=== PATIENT | male | born 1950 | race Hispanic/Latino ===

== ENCOUNTER 2021-01-12 13:04 | Emergency (ER) | payer OTHER ==
[2021-01-12 13:52] LABS: Urine Blood Trace-lysed (Negative); Urine Glucose Trace (Negative); Urine Protein Negative (Negative); Urine Specific Gravity 1.015 (1.005-1.030); Urine pH 5.5 (5.0-7.0)
--- NOTE | 2021-01-12 15:10 | RAD REPORT ---
EXAM DESCRIPTION: US - Scrotum Testicles - 01/12/2021 2:40 pm CLINICAL HISTORY: left testicle pain/swelling COMPARISON: Abdomen Exam Complete dated 10/01/2020; Abdomen W/Wo Contrast dated 01/24/2019 FINDINGS: The right testicle measures 4.3 x 2.1 x 2.6 cm with volume of 11.9 cc. The left testicle m easures 3.9 x 1.8 x 3 cm with volume of 10.8 cc. No masses are identified. The echotexture is normal. Right groin fluid collection demonstrating bulging bowel with Valsalva consistent with an inguinal h ernia. The left epididymis demonstrates increased vascular flow. The right epididymis is unremarkable . IMPRESSION: 1. Increased epididymal blood flow on the left may represent epididymitis. No fluid nga ections are identified. 2. Fluid in the right inguinal canal most likely secondary to an inguinal hernia. 3. Bilateral testicular blood flow is present.
--- NOTE | 2021-01-12 15:14 | EDPHYS ---
Physician Documentation [facility] Name: Kole Casas Jr Age: 70 yrs Sex: Male : 1950 Arrival Date: 01/12/2021 Time: 13:08 Bed 10 Private MD: ED Physician Raffy Good HPI: 01/12 14:14 This 70 yrs old Male presents to ER via Ambulatory with complaints of jr8 Testicular Swelling. 14:14 The patient presents with scrotal pain, of the left side, with swelling, with erythema, jr8 swelling, tenderness. Onset: The symptoms/episode began/occurred gradually. Modifying factors: The symptoms are alleviated by nothing, the symptoms are aggravated by movement, urinating. Associated signs and symptoms: Pertinent positives: dysuria. Severity of symptoms: At their worst the symptoms were moderate, in the emergency department the symptoms are unchanged. The patient has not experienced similar symptoms in the past. The patient has been recently seen by a physician:. Patient recently seen for same problem and had CT scan completed and was put on cipro. Did not have US completed at that time. Patient stated that he feels that something is just not right and wants reevaluation . Historical: - Allergies: 13:43 No Known Drug Allergies; tw2 13:43 No Known Allergies; tc5 - PMHx: 13:43 Cirrhosis of liver; tw2 - Immunization history:: Adult Immunizations Client reports receiving the 2nd dose of the Covid vaccine, Adult Immunizations up to date, x3. - Social history:: Smoking status: Smoking status: unknown Patient/guardian denies using. ROS: 14:14 Eyes: Negative for injury, pain, redness, and discharge, ENT: Negative for injury, jr8 pain, and discharge, Neck: Negative for injury, pain, and swelling, Cardiovascular: Negative for chest pain, palpitations, and edema, Respiratory: Negative for shortness of breath, cough, wheezing, and pleuritic chest pain, Abdomen/GI: Negative for abdominal pain, nausea, vomiting, diarrhea, and constipation, Back: Negative for injury and pain, MS/Extremity: Negative for injury and deformity, Skin: Negative for injury, rash, and discoloration, Neuro: Negative for headache, weakness, numbness, tingling, and seizure. 14:14 : Positive for urinary symptoms, testicular pain Exam: 14:14 Constitutional: This is a well developed, well nourished patient who is awake, alert, jr8 and in no acute distress. Cardiovascular: Regular rate and rhythm with a normal S1 and S2. No gallops, murmurs, or rubs. Normal PMI, no JVD. No pulse deficits. Respiratory: Lungs have equal breath sounds bilaterally, clear to auscultation and percussion. No rales, rhonchi or wheezes noted. No increased work of breathing, no retractions or nasal flaring. Abdomen/GI: Soft, non-tender, with normal bowel sounds. No distension or tympany. No guarding or rebound. No evidence of tenderness throughout. Back: No spinal tenderness. No costovertebral tenderness. Full range of motion. Skin: Warm, dry with normal turgor. Normal color with no rashes, no lesions, and no evidence of cellulitis. MS/ Extremity: Pulses equal, no cyanosis. Neurovascular intact. Full, normal range of motion. Neuro: Awake and alert, GCS 15, oriented to person, place, time, and situation. Motor strength 5/5 in all extremities. Sensory grossly intact. 14:14 : Male external genitalia: swelling, of the left testicle is noted, testicle, of the epididymis area, that is mild, tenderness, of the left testicle is noted, that is moderate. Vital Signs: 13:11 BP 167 / 94; Pulse 83; Resp 16; Temp 98.1; Pulse Ox 100% ; Weight 77.11 kg; Height 5 tc5 ft. 9 in. (175.26 cm); Pain 6/10; 15:26 BP 154 / 96; Pulse 75; Resp 16; Pulse Ox 100% ; tc5 13:11 Body Mass Index 25.10 (77.11 kg, 175.26 cm) tc5 MDM: 13:38 Patient medically screened. jr8 15:12 Data reviewed: vital signs, nurses notes, lab test result(s), radiologic studies, jr8 ultrasound. Data interpreted: Pulse oximetry: on room air is 100 %. Interpretation: normal. Counseling: I had a detailed discussion with the patient and/or guardian regarding: the historical points, exam findings, and any diagnostic results supporting the discharge/admit diagnosis, lab results, radiology results, the need for outpatient follow up, a urologist, to return to the emergency department if symptoms worsen or persist or if there are any questions or concerns that arise at home. 01/12 13:46 Order name: Urine Culture jr8 01/12 13:52 Order name: Urine Dipstick-Ancillary; Complete Time: 13:54 EDNY 01/12 13:46 Order name: US Scrotum Testicles; Complete Time: 15:12 jr8 01/12 13:46 Order name: Urine Dipstick-Ancillary (obtain specimen); Complete Time: 13:59 jr8 Administered Medications: No medications were administered Disposition Summary: 01/12/21 15:13 Discharge Ordered Location: Home jr8 Problem: new jr8 Symptoms: have improved jr8 Condition: Stable jr8 Diagnosis - Epididymitis jr8 Followup: jr8 - With: Chalino Warren MD - When: 2 - 3 days - Reason: Recheck today's complaints, Continuance of care, Re-evaluation by your physician Discharge Instructions: - Discharge Summary Sheet jr8 - Epididymitis jr8 Forms: - Medication Reconciliation Form jr8 - Thank You Letter jr8 - Antibiotic Education jr8 - Prescription Opioid Use jr8 Addendum: 01/15/2021 17:40 Co-signature as Attending Physician, Raffy Good MD. m a2 Signatures: Dispatcher [employer] [facility] Harish Sanders PA PA jr8 Coco Olson RN RN tw2 Raffy Good MD MD ma2 Teena Johnson RN RN tc5
--- NOTE | 2021-01-12 15:14 | ER ---
Nurse's Notes [facility] Name: Kole Casas Jr Age: 70 yrs Sex: Male : 1950 Arrival Date: 01/12/2021 Time: 13:08 Bed 10 Private MD: Diagnosis: Epididymitis Presentation: 01/12 13:11 Chief complaint: Patient states: pt reports left testicular pain x 4 days, seen at [facility] Sunday was given antibiotics, went to PCP yesterday and was told to cont abx, pt states he wants to go to a specialist, states he knows something is not right. Coronavirus screen: Vaccine status: Patient reports receiving the 2nd dose of the covid vaccine. pt has had 3 dose of vaccine. Ebola Screen: Patient negative for fever greater than or equal to 101.5 degrees Fahrenheit, and additional compatible Ebola Virus Disease symptoms Patient denies exposure to infectious person. Patient denies travel to an Ebola-affected area in the 21 days before illness onset. No symptoms or risks identified at this time. Risk Assessment: Do you want to hurt yourself or someone else? Patient reports no desire to harm self or others. Onset of symptoms was January 08, 2021 at 07:00. 13:11 Method Of Arrival: Ambulatory [facility] 13:11 Acuity: MINNIE 3 tc5 13:44 Initial Sepsis Screen: Does the patient meet any 2 criteria? No. Patient's initial tw2 sepsis screen is negative. Does the patient have a suspected source of infection? No. Patient's initial sepsis screen is negative. Triage Assessment: 13:34 General: Appears in no apparent distress. Behavior is calm, cooperative, appropriate tw2 for age. Pain: Complains of pain in testicles. 13:44 General: Appears uncomfortable. tc5 Historical: - Allergies: 13:43 No Known Drug Allergies; tw2 13:43 No Known Allergies; tc5 - PMHx: 13:43 Cirrhosis of liver; tw2 - Immunization history:: Adult Immunizations Client reports receiving the 2nd dose of the Covid vaccine, Adult Immunizations up to date, x3. - Social history:: Smoking status: Smoking status: unknown Patient/guardian denies using. Screenin:38 Abuse screen: Denies threats or abuse. Nutritional screening: No deficits noted. tw2 Tuberculosis screening: No symptoms or risk factors identified. Fall Risk None identified. Assessment: 13:45 General: Appears uncomfortable. Pain:. Neuro: No deficits noted. Cardiovascular: No tc5 deficits noted. Respiratory: No deficits noted. : Reports left teste pain and swelling x 4 days. Vital Signs: 13:11 BP 167 / 94; Pulse 83; Resp 16; Temp 98.1; Pulse Ox 100% ; Weight 77.11 kg; Height 5 tc5 ft. 9 in. (175.26 cm); Pain 6/10; 15:26 BP 154 / 96; Pulse 75; Resp 16; Pulse Ox 100% ; tc5 13:11 Body Mass Index 25.10 (77.11 kg, 175.26 cm) tc5 ED Course: 13:08 Patient arrived in ED. as 13:23 Triage completed. tc5 13:38 Harish Sanders PA is PHCP. jr8 13:38 Raffy Good MD is Attending Physician. jr8 13:38 Arm band placed on. tw2 13:43 Teena Johnson, RN is Primary Nurse. tc5 13:44 Placed in gown. Bed in low position. Call light in reach. Adult w/ patient. tw2 13:58 No provider procedures requiring assistance completed. pt to US via W/C. tc5 13:59 Urine Culture Sent. tc5 14:24 US Scrotum Testicles In Process Unspecified. EDMS 15:13 Chalino Warren MD is Referral Physician. jr8 15:26 Awaiting: US results, pt remains at bedside, no needs expressed at this time. tc5 Administered Medications: No medications were administered Outcome: 15:13 Discharge ordered by . jr8 16:04 Patient left the ED. tc5 Signatures: Dispatcher [employer] EDMS Tigist Marks Josh, PA PA jr8 Coco Olson, RN RN tw2 Teena Johnson, AIDA RN tc5
[2021-01-12 17:05] VITALS: TEMP 98.1; O2SAT 100
[2021-01-12 17:06] VITALS: BP 154/96
== END 2021-01-12 16:04 | disposition home or self-care (01) ==
LOC: ER 13:04
DX: N45.1 Epididymitis (principal)
CPT/HCPCS: 76870; 81003; 87086; 87088; 99283

== ENCOUNTER 2022-05-08 10:14 | Emergency (ER) | payer OTHER ==
--- OUTSIDE RECORDS SUMMARY | 2022-05-08 10:17 | XMS REPORT | Continuity of Care Document ---
:1950 Author Organization [facility] t Address [address] [place] [address] [address] [place] [address] Care Team Providers Name Role Phone ROSAURA GARCIA Attending Clinician Unavailable NBA HAGAN Attending Clinician Unavailable Nathan-Silviao_A_AH Attending Clinician Unavailable Katty Ortega MD Attending Clinician Nathan-Matteoayo_A_AH Admitting Clinician Unavailable Payers Payer Name Policy Type Policy Number Effective Date Expiration Date S ource [employer] MEDICARE [id number] 2020 00:00:00 [facility] [id number] 2018 PLUS CHOICE 00:00:00 [facility] [id number] 2019 [facility] 00:00:00 (MEDICARE REPLACEMENT/ADVANT AGE - HMO) Problems This patient has no known problems. Allergies, Adverse Reactions, Alerts Allergy Allergy Status Severity Reaction(s) Onset Inactive Treating Comm ents Source Name Type Date Date Clinician NO KNOWN Drug Active Univers ALLERGIE Class ity of S [facility] Social History Social Habit Start Date Stop Date Quantity Comments Source Sex Assigned At Uni versity [facility] Smoking Status Start Date Stop Date Source Unknown if ever smoked [facility] Medications Ordered Filled Start Stop Current Ordering Indication Dosage Frequency Signature Comments Components Source Medication Medication Date Date Medication? Clinician (SIG) Name Name iohexol 2019- No 120mL 120 mL, Unive rs (OMNIPAQUE 12-2605 Intravenou it y of 350 19:00: 18:40 s, ONCE, 1 [place] BULK-150 00 :00 dose, Trisha Medica l mL) 12/26/18 at Branch injection 1400, 120 mL Routine Procedures Procedure Date / Time Performing Clinician Source Performed CT ABDOMEN PELVIS W 2018-12-26 18:50:33 Katty Ortega [facility] CONTRAST Medical Branch NOTICE OF BILLING 2018-12-26 17:45:17 Doctor Unassopal, [facility] PRACTICES FOR MEDICARE [facility] PATIENTS [facility] PATIENT FINANCIAL 2018-12-26 17:44:38 Doctor Unassigned, [facility] POLICY [facility] NO SHOW OR MISSED 2018-12-26 17:44:19 Doctor Unassopal, [facility] APPOINTMENT POLICY [facility] ACKNOWLEDGEMENT NOTICE OF PRIVACY 2018-12-26 17:43:44 Doctor Unaguerda, [facility] PRACTICES [facility] CONSENT/REFUSAL FOR 2018-12-26 17:43:26 Doctor Patience, [facility] DIAGNOSIS AND TREATMENT [facility] ASSIGNMENT OF BENEFITS 2018-12-26 17:43:07 Doctor Unassigned, [facility] Encounters Start End Encounter Admission Attending Care Care Encounter Source Date/Time Date/Time Type Type Clinicians Facility Department ID 2020-12-13 2020-12-13 Outpatient Owen GARCIA [facility] [id number] Univers 12:40:00 12:40:00 ROSAURA [facility] 2020-07-18 2020-07-18 Outpatient Owen HAGAN [facility] [id number] Univers 12:40:00 12:40:00 NBA [facility] 2020-06-27 2020-06-27 Outpatient [facility] [id number] Univers 13:30:00 13:30:00 [facility] 2019-07-03 2019-07-03 Outpatient Nathan-Mbayo [facility] [id number] Village 06:16:00 06:16:00 _A_AH [id number] Family Practic e 2019-07-03 2019-07-03 Outpatient Nathan-Mbayo VFP VFP [phone] Village 06:16:00 06:16:00 _A_AH [id number] Family Practic e 2018-12-26 2018-12-26 [facility] Katty Ortega [facility] [id number] [facility] 12:56:21 23:59:00 Encounter M Pamela [id number] ity of [place] [id number] [facility] [id number] [facility] 801 Branch 2018-12-26 2018-12-26 [facility] Katty Ortega [facility] [id number] 12:56:21 23:59:00 Encounter M Pamela [id number] [place] [id number] [place] [id number] Results Test Test Test Results Result Source Description Time Comments Comments CT ABDOMEN 2018-12 CT Abdomen and Pelvis with [facility] PELVIS W -05 intravenous contrast. CLINICAL of [place] CONTRAST 19:05:0 HISTORY: History of portal Medical 8 vein thrombosis. DOSE: Br anch Up-to-date CT equipment and radiation dose reduction techniques wereemployed. CTDIvol: 6.69+6.69 mGy. DLP: 338+338 mGy-cm. TECHNIQUE : Contiguous axial imaging from the level of the lung basesthrough the pubic symphysis were performed after the uncomplicatedadministration of Omnipaque contrast material. Oral contrast was alsoadministered. Coronal and sagittal reconstructions were obtained. Auto mAand/or iterative reconstruction were used to reduce radiation dose. FINDINGS:? Lower lungs: Clear. No pleural effusion or pericardial effusion. Shortsliding hiatal hernia noted surrounded by esophageal varices. Gallstones are seen with fluid noted in the pericholecystic space, likelysecondary to liver disease. Liver, Gallbladder and Spleen: Liver is 12.4 cm and spleen is enlarged,measuring 14.7 x 6.4 cm. Liver showed nodular undulating serosal surface,consistent with chronic primary liver disease, possibly cirrhosis withportal hypertension. Peritoneum:?No free air or free fluid. No lymphadenopathy. Pancreas and Adrenals:?Unremarkable pancreas and adrenal glands. Kidneys and Ureters: Punctate 2 mm stone suspected in the middle calyx ofthe left kidney. No hydroureter or hydronephrosis. Vessels: Partially occluding thrombus is visualized in the superiormesenteric vein at the junction with the splenic vein and portal vein,occupying approximately 50-60% of the lumen of the vessel. The blood clotis approximately 2.2 x 1.4 cm in size. There is still the portal venouscirculation is patent. Dilated portal collaterals are seen surroundingstomach and lower esophagus.Atherosclerosis of the aorta and iliac arteries noted without an aorticaneurysm. Retroperitoneum: No abnormal fluid or lymphadenopathy. Bowel: Diverticulosis of the sigmoid colon noted with additionaldiverticula in the rest of large bowel without any signs of acutediverticulitis. Small bowel gas pattern is unremarkable. Appendix is smallin size with no signs of acute appendicitis. Bladder and Reproductive Organs: Urinary bladder is poorly distended andnot opacified by the intravenous contrast material. Mild enlargement of theprostate gland noted. Bones: No aggressive bone lesions. Moderate degenerative disc disease atL4-L5, L5-S1. Older trauma with prominent Schmorl's nodes in the upperplate of L2, L3, L4, lower plate of L1, L4 and lower thoracic vertebralbodies. Soft tissues: Small right inguinal hernia noted with small amount of fluidin the testicular cord. CONCLUSION:1. Partially occluding 2.2 x 1.4 cm size thrombus noted in superiormesenteric vein close to the confluence with splenic vein and portal vein.2. Liver morphology consistent with chronic liver disease such as cirrhosiswith portal hypertension causing splenomegaly and esophageal varices. Nofree fluid in the abdomen or in the pelvis.3. Gallstone and one small stone in the left kidney. Mimb, Radiant Results Inft User - 12/26/2018 2:05 PM CDTCT Abdomen and Pelvis with intravenous contrast.CLINICAL HISTORY: History of portal vein thrombosis.DOSE: Up-to-date CT equipment and radiation dose reduction techniques wereemployed. CTDIvol: 6.69+6.69 mGy. DLP: 338+338 mGy-cm.TECHNIQUE : Contiguous axial imaging from the level of the lung basesthrough the pubic symphysis were performed after the uncomplicatedadministration of Omnipaque contrast material. Oral contrast was alsoadministered. Coronal and sagittal reconstructions were obtained. Auto mAand/or iterative reconstruction were used to reduce radiation dose.FINDINGS: Lower lungs: Clear. No pleural effusion or pericardial effusion. Shortsliding hiatal hernia noted surrounded by esophageal varices.Gallstones are seen with fluid noted in the pericholecystic space, likelysecondary to liver disease.Liver, Gallbladder and Spleen: Liver is 12.4 cm and spleen is enlarged,measuring 14.7 x 6.4 cm. Liver showed nodular undulating serosal surface,consistent with chronic primary liver disease, possibly cirrhosis withportal hypertension.Peritoneum: No free air or free fluid. No lymphadenopathy.Pancreas and Adrenals: Unremarkable pancreas and adrenal glands.Kidneys and Ureters: Punctate 2 mm stone suspected in the middle calyx ofthe left kidney. No hydroureter or hydronephrosis. Vessels: Partially occluding thrombus is visualized in the superiormesenteric vein at the junction with the splenic vein and portal vein,occupying approximately 50-60% of the lumen of the vessel. The blood clotis approximately 2.2 x 1.4 cm in size. There is still the portal venouscirculation is patent. Dilated portal collaterals are seen surroundingstomach and lower esophagus.Atherosclerosis of the aorta and iliac arteries noted without an aorticaneurysm.Retroperitoneum : No abnormal fluid or lymphadenopathy.Bowel: Diverticulosis of the sigmoid colon noted with additionaldiverticula in the rest of large bowel without any signs of acutediverticulitis. Small bowel gas pattern is unremarkable. Appendix is smallin size with no signs of acute appendicitis.Bladder and Reproductive Organs: Urinary bladder is poorly distended andnot opacified by the intravenous contrast material. Mild enlargement of theprostate gland noted.Bones: No aggressive bone lesions. Moderate degenerative disc disease atL4-L5, L5-S1. Older trauma with prominent Schmorl's nodes in the upperplate of L2, L3, L4, lower plate of L1, L4 and lower thoracic vertebralbodies.Soft tissues: Small right inguinal hernia noted with small amount of fluidin the testicular cord.CONCLUSION:1. Partially occluding 2.2 x 1.4 cm size thrombus noted in superiormesenteric vein close to the confluence with splenic vein and portal vein.2. Liver morphology consistent with chronic liver disease such as cirrhosiswith portal hypertension causing splenomegaly and esophageal varices. Nofree fluid in the abdomen or in the pelvis.3. Gallstone and one small stone in the left kidney.
[2022-05-08 11:04] LABS: Absolute Lymphocytes (CBC) 1.1 K/uL (0.7-4.9); Lymphocytes % 21.1 % (15.3-44.8); MCV 89.3 fL (80-100); MPV 8.8 fL (7.6-11.3); RBC Red Blood Cell Count 4.59 M/uL (4.33-5.43)
[2022-05-08 11:20] LABS: Albumin 3.8 g/dL (3.4-5.0); Bilirubin Total 1.2 mg/dL (0.2-1.0); Potassium 4.5 mmol/L (3.5-5.1)
--- NOTE | 2022-05-08 11:34 | RAD REPORT ---
EXAM DESCRIPTION: US - Abdomen Exam Limited - 05/08/2022 11:15 am CLINICAL HISTORY: RUQ pain COMPARISON: Abdomen Exam Complete dated 09/16/2021 FINDINGS: The gallbladder demonstrates shadowing mobile gallstones. No pericholecystic fluid or gall bladder wall thickening. The common bile duct is normal measuring 5 mm. Positive sonographic Pandya's sign reported. The liver demonstrates no findings of intrahepatic biliary dilatation. Coarsened echotexture of the l iver likely reflecting cirrhosis. IMPRESSION: Cholelithiasis. A positive sonographic Pandya's sign was reported. While sensitive, this is not specific. Correlate with LFTs. No ancillary findings are present to suggest acute cholecystit is, however.
--- NOTE | 2022-05-08 12:17 | RAD REPORT ---
EXAM DESCRIPTION: RAD - Shoulder Right 2 View - 05/08/2022 12:09 pm CLINICAL HISTORY: PAIN COMPARISON: No comparisons FINDINGS/IMPRESSION: No acute fracture. No malalignment. Moderate glenohumeral joint degenerative ch anges
--- NOTE | 2022-05-08 12:19 | RAD REPORT ---
EXAM DESCRIPTION: RAD - Knee Left 3 View - 05/08/2022 12:09 pm CLINICAL HISTORY: PAIN COMPARISON: No comparisons FINDINGS/IMPRESSION: No acute fracture. No malalignment. No significant focal degenerative changes.
--- NOTE | 2022-05-08 12:41 | ER ---
Nurse's Notes [facility] Name: Kole Casas Jr Age: 71 yrs Sex: Male : 1950 Arrival Date: 05/08/2022 Time: 10:18 Bed 8 Private MD: Rosalia Pierre Diagnosis: Other cholelithiasis without obstruction;Pain in right shoulder;Pain in left knee Presentation: 05/08 10:38 Chief complaint: Patient states: I have pain in my right shoulder, neck and left leg kr3 that has been there for 1 week. Coronavirus screen: Vaccine status: Patient reports receiving the 2nd dose of the covid vaccine. Ebola Screen: Patient denies travel to an Ebola-affected area in the 21 days before illness onset. Initial Sepsis Screen: Does the patient meet any 2 criteria? No. Patient's initial sepsis screen is negative. Does the patient have a suspected source of infection? No. Patient's initial sepsis screen is negative. Risk Assessment: Do you want to hurt yourself or someone else? Patient reports no desire to harm self or others. Onset of symptoms was May 01, 2022. 10:38 Method Of Arrival: Ambulatory kr3 10:38 Acuity: MINNIE 3 kr3 Triage Assessment: 10:41 General: Appears in no apparent distress. uncomfortable, Behavior is calm, cooperative, kr3 appropriate for age. Pain: Complains of pain in right neck and shoulder, left leg. Historical: - Allergies: 12:53 Ibuprofen; vg1 - PMHx: 10:40 cirrhosis of liver; kr3 - Immunization history:: Adult Immunizations not up to date. - Social history:: Smoking status: Patient denies any tobacco usage or history of. - Family history:: not pertinent. Screenin:50 [facility] ED Fall Risk Assessment (Adult) History of falling in the last 3 months, ld1 including since admission No falls in past 3 months (0 pts). Abuse screen: Denies threats or abuse. Denies injuries from another. Nutritional screening: No deficits noted. Tuberculosis screening: No symptoms or risk factors identified. Assessment: 10:50 General: Appears in no apparent distress. comfortable, Behavior is calm, cooperative, ld1 appropriate for age. Pain: Complains of pain in anterior aspect of right shoulder Pain does not radiate. Pain currently is 3 out of 10 on a pain scale. at worst was 10 out of 10 on a pain scale. Quality of pain is described as sharp, shooting, throbbing. Neuro: Level of Consciousness is awake, alert, obeys commands, Oriented to person, place, time, situation, Appropriate for age. Cardiovascular: Capillary refill < 3 seconds Patient's skin is warm and dry. Respiratory: Airway is patent Respiratory effort is even, unlabored. GI: Abdomen is round non-distended, Bowel sounds present X 4 quads. Abd is soft Abd is non tender. : No signs and/or symptoms were reported regarding the genitourinary system. EENT: No signs and/or symptoms were reported regarding the EENT system. Derm: No signs and/or symptoms reported regarding the dermatologic system. Musculoskeletal: No signs and/or symptoms reported regarding the musculoskeletal system. 13:06 Reassessment: Patient appears in no apparent distress at this time. Patient and/or ld1 family updated on plan of care and expected duration. Pain level reassessed. Patient is alert, oriented x 3, equal unlabored respirations, skin warm/dry/pink. Vital Signs: 10:38 BP 154 / 94; Pulse 84; Resp 18; Temp 98.3; Pulse Ox 100% ; Weight 77.11 kg; Height 5 kr3 ft. 9 in. (175.26 cm); Pain 7/10; 10:50 BP 152 / 90; Pulse 78; Resp 18; Pulse Ox 99% on R/A; Pain 3/10; ld1 11:51 BP 149 / 83; Pulse 82; Resp 18; Pulse Ox 100% on R/A; ld1 13:06 BP 139 / 79; Pulse 81; Resp 18; Pulse Ox 100% on R/A; ld1 10:38 Body Mass Index 25.10 (77.11 kg, 175.26 cm) kr3 ED Course: 10:18 Patient arrived in ED. mr 10:19 Rosalia Pierre is Private Physician. mr 10:20 Cedrick Peterson MD is Attending Physician. rt 10:39 Shelby Liu, AIDA is Primary Nurse. ld1 10:40 Triage completed. kr3 10:41 Patient placed in an exam room, on a stretcher. kr3 10:47 Inserted saline lock: 20 gauge in right antecubital area, using aseptic technique. ld1 Blood collected. 10:48 CMP Sent. ld1 10:48 Lipase Sent. ld1 10:48 CBC with Diff Sent. ld1 10:50 Patient has correct armband on for positive identification. Placed in gown. Bed in low ld1 position. Call light in reach. Side rails up X2. numerologist on. Pulse ox on. NIBP on. Door closed. Noise minimized. Warm blanket given. 10:50 No provider procedures requiring assistance completed. ld1 11:17 US Abdomen Limited In Process Unspecified. EDMS 12:11 Shoulder Right (2 View) XRAY In Process Unspecified. EDMS 12:11 Knee Left 3 View XRAY In Process Unspecified. EDMS 12:40 Devang Davis MD is Referral Physician. rt 13:06 IV discontinued, intact, bleeding controlled, No redness/swelling at site. ld1 Administered Medications: No medications were administered Medication: 10:50 VIS not applicable for this client. ld1 Outcome: 12:40 Discharge ordered by . rt 13:06 Discharged to home ambulatory. ld1 13:06 Condition: stable 13:06 Discharge instructions given to patient, family, Instructed on discharge instructions, follow up and referral plans. medication usage, Demonstrated understanding of instructions, follow-up care, medications, Prescriptions given X 1. 13:07 Patient left the ED. ld1 Signatures: Dispatcher [employer] FREDY Kyleigh MattaBelinda, RN RN vg1 Shelby Liu RN RN ld1 Jaelyn Finnegan RN RN iker3 Cedrick Peterson MD MD rt Corrections: (The following items were deleted from the chart) 12:54 10:40 Allergies: No Known Allergies; isac vg1
--- NOTE | 2022-05-08 12:41 | EDPHYS ---
Physician Documentation [facility] Name: Kole Casas Jr Age: 71 yrs Sex: Male : 1950 Arrival Date: 05/08/2022 Time: 10:18 Bed 8 Private MD: Rosalia Pierre ED Physician Cedrick Peterson HPI: 05/08 10:56 This 71 yrs old Male presents to ER via Ambulatory with complaints of rt Abdominal Pain. 10:56 This 71 yrs old Male presents to ER via Ambulatory with complaints of R rt shoulder pain. 10:56 The patient or guardian complains of pain. Onset: The symptoms/episode began/occurred 1 rt week(s) ago. Modifying factors: the symptoms are alleviated by nothing. The symptoms are aggravated by movement. Severity of symptoms: At their worst the symptoms were mild. Patient with known history of gallstones presents to the ED with an intermittent right shoulder pain for about 1 week. He also complains of pain to the left knee. Patient states that the pain radiates to the neck. He denies nausea, vomiting. He does report diarrhea. reports a subjective fever. The patient is concerned that this may be referred pain from his gallbladder. He denies other acute complaints at this time, symptoms are mild in severity, aching nature, not otherwise radiating, no other aggravating or alleviating factors.. Historical: - Allergies: 12:53 Ibuprofen; vg1 - PMHx: 10:40 cirrhosis of liver; kr3 - Immunization history:: Adult Immunizations not up to date. - Social history:: Smoking status: Patient denies any tobacco usage or history of. - Family history:: not pertinent. ROS: 10:56 Constitutional: Negative for fever, chills, and weight loss, ENT: Negative for injury, rt pain, and discharge, Neck: Negative for injury, pain, and swelling, Cardiovascular: Negative for chest pain, palpitations, and edema, Respiratory: Negative for shortness of breath, cough, wheezing, and pleuritic chest pain, Abdomen/GI: Negative for abdominal pain, nausea, vomiting, diarrhea, and constipation, Skin: Negative for injury, rash, and discoloration, Neuro: Negative for headache, weakness, numbness, tingling, and seizure, Psych: Negative for depression, anxiety, suicide ideation, homicidal ideation, and hallucinations. 10:56 Constitutional: Positive for subjective fever, Negative for body aches. 10:56 MS/extremity: Positive for pain, Negative for injury or acute deformity. Exam: 10:56 Constitutional: This is a well developed, well nourished patient who is awake, alert, rt and in no acute distress. Head/Face: Normocephalic, atraumatic. Eyes: Pupils equal round and reactive to light, extra-ocular motions intact. Lids and lashes normal. Conjunctiva and sclera are non-icteric and not injected. Cornea within normal limits. Periorbital areas with no swelling, redness, or edema. ENT: Nares patent. No nasal discharge, no septal abnormalities noted. Tympanic membranes are normal and external auditory canals are clear. Oropharynx with no redness, swelling, or masses, exudates, or evidence of obstruction, uvula midline. Mucous membranes moist. Chest/axilla: Normal chest wall appearance and motion. Nontender with no deformity. No lesions are appreciated. Cardiovascular: Regular rate and rhythm with a normal S1 and S2. No gallops, murmurs, or rubs. Normal PMI, no JVD. No pulse deficits. Respiratory: Lungs have equal breath sounds bilaterally, clear to auscultation and percussion. No rales, rhonchi or wheezes noted. No increased work of breathing, no retractions or nasal flaring. Abdomen/GI: Soft, non-tender, with normal bowel sounds. No distension or tympany. No guarding or rebound. No evidence of tenderness throughout. Skin: Warm, dry with normal turgor. Normal color with no rashes, no lesions, and no evidence of cellulitis. Neuro: Awake and alert, GCS 15, oriented to person, place, time, and situation. Cranial nerves II-XII grossly intact. Motor strength 5/5 in all extremities. Sensory grossly intact. Cerebellar exam normal. Normal gait. Psych: Awake, alert, with orientation to person, place and time. Behavior, mood, and affect are within normal limits. 10:56 Musculoskeletal/extremity: Tenderness to the right AC joint, no appreciable swelling or skin changes. There is no areas of tenderness, swelling to the left knee, left lower extremity. Pulse, motor, sensation intact. Vital Signs: 10:38 BP 154 / 94; Pulse 84; Resp 18; Temp 98.3; Pulse Ox 100% ; Weight 77.11 kg; Height 5 kr3 ft. 9 in. (175.26 cm); Pain 7/10; 10:50 BP 152 / 90; Pulse 78; Resp 18; Pulse Ox 99% on R/A; Pain 3/10; ld1 11:51 BP 149 / 83; Pulse 82; Resp 18; Pulse Ox 100% on R/A; ld1 13:06 BP 139 / 79; Pulse 81; Resp 18; Pulse Ox 100% on R/A; ld1 10:38 Body Mass Index 25.10 (77.11 kg, 175.26 cm) kr3 MDM: 10:29 Patient medically screened. rt 13:08 Differential diagnosis: Cholecystitis, cholelithiasis, pancreatitis, arthritis, septic rt arthritis. Data reviewed: vital signs, nurses notes, lab test result(s), EKG, radiologic studies. I considered the following discharge prescriptions or medication management in the emergency department Will prescribe patient opioid pain medications as he had a prior GI bleed, do not believe that NSAIDs are indicated at this time. Test considered but Not performed: EKG: Symptoms are not typical of a cardiac etiology. Care significantly affected by the following chronic conditions: Cholelithiasis, previous GI bleed. ED course: Patient presents to the ED with a right shoulder pain. The pain seems to be musculoskeletal in nature. Given known history of cholelithiasis, ultrasound was obtained that shows cholelithiasis without evidence of biliary ductal dilation or cholecystitis. He has no focal right upper quadrant tenderness on examination. Believes that this is amenable for outpatient management. Patient struck to follow-up with the surgeon for consideration of elective cholecystectomy. Will give patient pain medications. We will follow-up as an outpatient. X-ray shows degenerative changes, no dislocations. No clinical findings to suggest an acute arterial occlusion, septic arthritis.. 05/08 10:37 Order name: CBC with Diff; Complete Time: 11:22 rt 05/08 10:37 Order name: CMP; Complete Time: 11: rt 05/08 10:37 Order name: Lipase; Complete Time: 11: rt 05/08 10:37 Order name: Shoulder Right (2 View) XRAY; Complete Time: 12:27 rt 05/08 10:37 Order name: Knee Left 3 View XRAY; Complete Time: 12:27 rt 05/08 10:37 Order name: US Abdomen Limited; Complete Time: 12:27 rt Administered Medications: No medications were administered Disposition Summary: 05/08/22 12:40 Discharge Ordered Location: Home rt Problem: an ongoing problem rt Symptoms: have improved rt Condition: Stable rt Diagnosis - Other cholelithiasis without obstruction rt - Pain in right shoulder rt - Pain in left knee rt Followup: rt - With: Private Physician - When: 2 - 3 days - Reason: Followup: rt - With: Devang Davis MD - When: 2 - 3 days - Reason: Discharge Instructions: - Discharge Summary Sheet rt - Joint Pain rt - Musculoskeletal Pain rt - Cholelithiasis rt Forms: - Medication Reconciliation Form rt - Thank You Letter rt - Antibiotic Education rt - Prescription Opioid Use rt Prescriptions: - Tramadol 50 mg Oral Tablet - take 1 tablet by ORAL route every 8 hours as needed; 12 tablet; Refills: 0, rt Product Selection Permitted Signatures: Dispatcher [employer] Belinda Leyva RN RN vg1 Jaelyn Finnegan RN RN kr3 Cedrick Peterson MD MD rt Corrections: (The following items were deleted from the chart) 12:54 10:40 Allergies: No Known Allergies; iker3 vg1
[2022-05-08 13:11] VITALS: TEMP 98.3
[2022-05-08 13:13] VITALS: O2SAT 100
[2022-05-08 13:14] VITALS: BP 139/79
== END 2022-05-08 13:07 | disposition home or self-care (01) ==
LOC: ER 10:14
DX: K80.80 Other cholelithiasis without obstruction (principal); M25.511 Pain in right shoulder; M25.562 Pain in left knee; Z88.6 Allergy status to analgesic agent
CPT/HCPCS: 36415; 76705; 80053; 83690; 85025; 99284

== ENCOUNTER → 2023-07-11 | Emergency (ER) | payer OTHER ==
[~2023-07-11] MED LIST: CEFTRIAXONE 1000 MG/VIAL ONE; IBUPROFEN 200 MG TAB PO ONE; IBUPROFEN 400 MG TAB ONE; KETOROLAC 30 MG/ML INJ ONE; METRONIDAZOLE 500mg IVPB 500 MG/100 ML BAG IV ONE; MORPHINE 4 MG/ML SYR ONE; NA CHLORIDE 0.9% 1,000 ML ONE; ONDANSETRON 4 MG/2 ML VIAL ONE; WATER FOR INJ,STERILE 10 ML ONE
[2023-07-11 01:50] LABS: Absolute Lymphocytes (CBC) 0.8 K/uL (0.7-4.9); Basophils % 0.5 % (0-1.3); Eosinophils % 0.4 % (0-4.4); Hematocrit 38.5 % (39.6-49.0); Hemoglobin 13.3 g/dL (13.6-17.9); Lymphocytes % 11.2 % (15.3-44.8); MCH 31.1 pg (27.0-35.0); MCHC 34.5 g/dL (32.0-36.0); MCV 90.2 fL (80-100); MPV 9.1 fL (7.6-11.3); Monocytes % 14.8 % (3.3-12.3); Neutrophils % 73.1 % (41.7-73.7); Platelets 65 thou/uL (152-406); RBC Red Blood Cell Count 4.26 M/uL (4.33-5.43); Red Cell Distribution Width 14.2 % (12.1-15.2)
[2023-07-11 01:59] LABS: Albumin 3.1 g/dL (3.4-5.0); Albumin/Globulin Ratio 0.7 (1.1-1.8); Anion Gap 11.7 mEq/L (5.0-15.0); Bilirubin Total 1.7 mg/dL (0.2-1.0); Globulin 4.4 g/dL (2.3-3.5); Potassium 3.7 mEq/L (3.5-5.1); Protein, Total 7.5 g/dL (6.4-8.2)
[2023-07-11 03:15] LABS: Specific Gravity 1.025 (1.005-1.030); Sqamous Epithelial None Seen /HPF (None Seen); Urine Bacteria <20 /HPF (<20); Urine Bilirubin NEGATIVE (Negative); Urine Blood Trace (Negative); Urine Clarity Clear (Clear); Urine Color Yellow (Yellow); Urine Culture Reflex Order NOT NEEDED; Urine Glucose NEGATIVE (Negative); Urine Ketones NEGATIVE (Negative); Urine Microscopic Reflex YN ORDER UMIC; Urine Mucus Slight /HPF (None Seen); Urine Nitrite 2+ (Negative); Urine Protein TRACE (Negative); Urine RBC <5 /HPF (None Seen); Urine Urobilinogen 2+ (Normal); Urine WBC Clump Rare /HPF (None Seen); Urine pH 5.5 (5.0-7.0)
--- NOTE | 2023-07-11 03:32 | ER ---
Nurse's Notes [facility] Name: Kole Casas Jr Age: 72 yrs Sex: Male : 1950 Arrival Date: 07/11/2023 Time: 00:47 Bed 6 Private MD: Diagnosis: Epididymitis;Acute left epididymitis, right inguinal hernia, partial splenic vein thrombosis Presentation: 07/10 01:05 Chief complaint: Patient states: TESTICULAR PAIN STARTED 5 DAYS AGO, FEVER TODAY. rv UNABLE TO CONTROL WITH TYLENOL. NO NAUSEA/VOMITING. DENIES URINARY SYMPTOMS. DENIES PENILE DISCHARGE. Coronavirus screen: At this time, the client does not indicate any symptoms associated with coronavirus-19. Ebola Screen: No symptoms or risks identified at this time. Initial Sepsis Screen: Does the patient meet any 2 criteria? No. Patient's initial sepsis screen is negative. Does the patient have a suspected source of infection? No. Patient's initial sepsis screen is negative. Risk Assessment: Do you want to hurt yourself or someone else? Patient reports no desire to harm self or others. Onset of symptoms was July 11, 2023. 01:05 Method Of Arrival: Ambulatory rv 01:05 Acuity: MINNIE 3 rv Triage Assessment: 01:06 General: Appears in no apparent distress. Behavior is calm, cooperative. Pain: rv Complains of pain in TESTICLES. Neuro: Level of Consciousness is awake, alert, obeys commands, Oriented to person, place, time, situation. Cardiovascular: Capillary refill < 3 seconds Patient's skin is warm and dry. Respiratory: Airway is patent Respiratory effort is even, unlabored. GI: No signs and/or symptoms were reported involving the gastrointestinal system. : Reports pain in bilateral testicle. Derm: Skin is intact. Historical: - PMHx: 01:06 cirrhosis of liver; rv - PSHx: 01:06 None; rv - Immunization history:: Adult Immunizations up to date. - Social history:: Smoking status: Patient denies any tobacco usage or history of. - Family history:: not pertinent. Screenin:07 [facility] ED Fall Risk Assessment (Adult) History of falling in the last 3 months, rv including since admission No falls in past 3 months (0 pts) Score/Fall Risk Level 0 - 2 = Low Risk Oriented to surroundings, Maintained a safe environment, Educated pt \T\ family on fall prevention, incl call for assistance when getting out of bed, Assessed \T\ reinforced patient's understanding of fall precautions. Abuse screen: Denies threats or abuse. Denies injuries from another. Nutritional screening: No deficits noted. Tuberculosis screening: No symptoms or risk factors identified. Assessment: 03:17 Reassessment: Patient and/or family updated on plan of care and expected duration. Pain ha1 level reassessed. Patient is alert, oriented x 3, equal unlabored respirations, skin warm/dry/pink. Patient states symptoms have improved. Vital Signs: 01:05 BP 145 / 85; Pulse 105; Resp 16; Temp 102.9; Pulse Ox 96% on R/A; rv 02:06 BP 140 / 81; Pulse 103; Resp 16; Pulse Ox 100% ; jj7 03:17 BP 110 / 71; Pulse 95; Resp 18 S; Temp 98.7(O); Pulse Ox 96% on R/A; ha1 ED Course: 00:51 Patient arrived in ED. im 00:57 Justin Fair MD is Attending Physician. sp4 01:06 Triage completed. rv 01:06 Arm band placed on right wrist. rv 01:07 Patient has correct armband on for positive identification. Client placed on continuous rv cardiac and pulse oximetry monitoring. NIBP monitoring applied. 01:07 No provider procedures requiring assistance completed. rv 01:32 Frank Gentile, AIDA is Primary Nurse. rv 01:34 CBC with Diff Sent. rv 01:34 CMP Sent. rv 01:34 Lipase Sent. rv 01:34 Inserted saline lock: 20 gauge in right forearm, using aseptic technique. Blood rv collected. 01:58 US Scrotum Testicles In Process Unspecified. EDMS 02:39 CT Abd/Pelvis - IV Contrast Only In Process Unspecified. EDMS 03:30 Sonido Faria MD is Referral Physician. sp4 03:52 Provided Education on: following up with PCP. Medication administration . ha1 03:52 IV discontinued, intact, bleeding controlled, No redness/swelling at site. Pressure ha1 dressing applied. Administered Medications: 01:33 Drug: NS 0.9% IV 1000 ml IV at 1 bolus Per protocol; 1000 mL bolus Route: IV; Rate: 1 rv bolus; Site: right forearm; 03:54 Follow up: Response: No adverse reaction; IV Status: Completed infusion; IV Intake: ha1 1000ml 01:33 Drug: TORadol - Ketorolac IVP 15 mg IVP once Route: IVP; Site: right forearm; rv 03:55 Follow up: Response: No adverse reaction; Marked relief of symptoms ha1 01:33 Drug: Ondansetron IVP 4 mg IVP once; over 2 minutes Route: IVP; Site: right forearm; rv 03:55 Follow up: Response: No adverse reaction; Marked relief of symptoms ha1 01:33 Drug: morphine IVP or IV 4 mg IVP once over 4 mins Route: IVP; Infused Over: 4 mins; rv Site: right forearm; 02:00 Follow up: Response: No adverse reaction; Marked relief of symptoms; Pain is decreased; ha1 RASS: Alert and Calm (0) 01:33 Drug: Rocephin - Rocephin (cefTRIAXone) IVPB 1 grams IVPB once over 30 mins; (mix in 50 rv mL NS) Route: IVPB; Infused Over: 30 mins; Site: right forearm; 02:00 Follow up: Response: No adverse reaction; IV Status: Completed infusion; IV Intake: [id number] 01:33 Drug: metroNIDAZOLE IVPB 500 mg 100 ml IVPB at 200 ml/hr once over 30 mins Volume: 100 rv ml; Route: IVPB; Rate: 200 ml/hr; Infused Over: 30 mins; Site: right forearm; 03:00 Follow up: Response: No adverse reaction; IV Status: Completed infusion; IV Intake: [id number] 01:33 Drug: Ibuprofen PO 600 mg PO once Route: PO; rv 03:16 Follow up: Response: No adverse reaction; Marked relief of symptoms; Temperature is ha1 decreased Medication: 01:07 VIS not applicable for this client. rv Intake: 02:00 IV: 50ml; Total: 50ml. ha1 03:00 IV: 50ml; Total: 100ml. ha1 03:54 IV: 1000ml; Total: 1100ml. ha1 Outcome: 03:31 Discharge ordered by sp4 03:52 Discharged to home ambulatory, with family, ha1 03:52 Condition: stable 03:52 Discharge instructions given to patient, family, Instructed on discharge instructions, follow up and referral plans. medication usage, Demonstrated understanding of instructions, follow-up care, medications, Prescriptions given X 4, 03:56 Patient left the ED. ha1 Signatures: Dispatcher [employer] EDMS Frank Gentile RN RN rv Bonnie Guerra RN RN ha1 Matty Scott RN RN jj7 Justin Fair MD MD sp4 Anh Campbell Corrections: (The following items were deleted from the chart) 01:32 01:06 Allergies: Ibuprofen; rv rv 03:17 03:12 BP 110 / 71; Pulse 95bpm; Resp 18bpm; Spontaneous; Pulse Ox 96% RA; ha1 ha1
--- NOTE | 2023-07-11 03:32 | EDPHYS ---
Physician Documentation [facility] [place] Name: Kole Casas Jr Age: 72 yrs Sex: Male : 1950 Arrival Date: 07/11/2023 Time: 00:47 Bed 6 Private MD: ED Physician Justin Fair HPI: 07/10 00:57 This 72 yrs old Male presents to ER via Unassigned with complaints of sp4 Testicular Pain - Left, Fever. 02:53 Very pleasant 72-year-old male with history of liver cirrhosis presents with acute sp4 onset of left testicular pain starting 6 days ago associated with fever onset 1 day ago. Patient reports left testicular pain and the redness, presented with fever to 102.9. Denied being sexually active. Denies symptoms of UTI.. Historical: - PMHx: 01:06 cirrhosis of liver; rv - PSHx: 01:06 None; rv - Immunization history:: Adult Immunizations up to date. - Social history:: Smoking status: Patient denies any tobacco usage or history of. - Family history:: not pertinent. ROS: 02:53 Constitutional: Positive fever, positive for left testicular pain, positive left sp4 testicular redness 02:53 All other systems are negative, Exam: 02:53 Constitutional: This is a well developed, well nourished patient who is awake, alert, sp4 febrile and tachycardic Head/Face: Normocephalic, atraumatic. Eyes: Pupils equal round and reactive to light, extra-ocular motions intact. Lids and lashes normal. Conjunctiva and sclera are not injected. Cornea within normal limits. Periorbital areas with no swelling, redness, or edema. ENT: Nares patent. No nasal discharge, no septal abnormalities noted. Tympanic membranes are normal and external auditory canals are clear. Oropharynx with no redness, swelling, or masses, exudates, or evidence of obstruction, uvula midline. Mucous membranes moist. Neck: Trachea midline, no thyromegaly or masses palpated, and no cervical lymphadenopathy. Supple, full range of motion without nuchal rigidity, or vertebral point tenderness. Chest/axilla: Normal chest wall appearance and motion. Nontender with no deformity. No lesions are appreciated. Cardiovascular: Regular rate and rhythm with a normal S1 and S2. No gallops, murmurs, or rubs. Normal PMI, no JVD. No pulse deficits. Respiratory: Lungs have equal breath sounds bilaterally, clear to auscultation and percussion. No rales, rhonchi or wheezes noted. No increased work of breathing, no retractions or nasal flaring. Abdomen/GI: Soft, with normal bowel sounds. No distension or tympany. No guarding or rebound. No evidence of tenderness throughout. Male : Uncircumcised male, no lesions, no oral mylar genitalia, left testicle there is redness and epididymal tenderness, there no lymphadenopathy, no lesions no discharge Skin: Warm, dry with normal turgor. Normal color with no rashes, no lesions, and no evidence of cellulitis. MS/ Extremity: Pulses equal, no cyanosis. Neurovascular intact. Full, normal range of motion. Neuro: Awake and alert, GCS 15, oriented to person, place, time, and situation. Cranial nerves II-XII grossly intact. Motor strength 5/5 in all extremities. Sensory grossly intact. Psych: Awake, alert, with orientation to person, place and time. Behavior, mood, and affect are within normal limits Vital Signs: 01:05 BP 145 / 85; Pulse 105; Resp 16; Temp 102.9; Pulse Ox 96% on R/A; rv 02:06 BP 140 / 81; Pulse 103; Resp 16; Pulse Ox 100% ; jj7 03:17 BP 110 / 71; Pulse 95; Resp 18 S; Temp 98.7(O); Pulse Ox 96% on R/A; ha1 MDM: 01:07 Patient medically screened. sp4 02:45 ED course: EXAM DESCRIPTION: Scrotum Testicles CLINICAL HISTORY: 72 years Male, pain sp4 left testicle COMPARISON: 01/12/2021 TECHNIQUE: Real-time sonographic images of the scrotal contents obtained using a linear multi hertz transducer. Color and spectral Doppler imaging was also obtained. FINDINGS: Testicles: The right testicle measures3.9 x 1.8 x 3.1 cm. The left testicle measures4.3 x 3.1 x 2.7 cm. No solid intratesticular mass identified. Homogenous echogenicity of the testicles. Epididymis:Mild enlargement and increased vascularity of the left epididymis. Hydrocele:Trace right hydrocele. Fluid within the right inguinal canal. Mild complex appearing left hydrocele. Blood flow:Normal arterial and venous blood flow identified bilaterally. Other:No additional findings. IMPRESSION: 1. Blood flow identified in the testicles bilaterally. 2. Mild enlargement and increased vascularity of the left epididymis. These findings could be seen with epididymitis. 3. Mild complex left hydrocele. 4. Fluid within the right inguinal canal.. 03:19 ED course: CLINICAL HISTORY: groin and testicular pain COMPARISON: 01/26/2019. sp4 TECHNIQUE: CTABDOMEN PELVIS WITH IV CONTRAST on 07/11/2023 1:08 AM CDT This exam was performed according to our departmental dose-optimization program, which includes automated exposure control, adjustment of the mA and/or kV according to patient size and/or use of iterative reconstruction technique. FINDINGS: Lower lungs are clear. Abdomen: Liver is moderately cirrhotic in morphology. There is a nonobstructive thrombus within the upper aspect of the superior mesenteric vein with a small component within the anterior aspect of the proximal portal vein. There is no biliary dilatation. Cholecystectomy was performed. Spleen is enlarged measuring 16.3 cm. Pancreas is unremarkable. Adrenal glands are normal. There is a 2 mm mid pole right renal calculus. There is no hydronephrosis bilaterally. Abdominal aorta is normal in course and caliber without aneurysm. There is no free air. There is no retroperitoneal adenopathy. Pelvis: There is no bowel obstruction. Urinary bladder is unremarkable. There is no free fluid. Appendix is normal. There is a small right inguinal hernia containing fluid only. Skeleton: There are no acute osseous findings. No suspicious bony lesions. IMPRESSION: Hepatic cirrhosis with splenomegaly. Upper splenic vein nonocclusive thrombus, minimally increased in size with developing nonocclusive small proximal portal vein thrombus. Fluid-containing right inguinal hernia.. 03:27 Differential diagnosis: nonspecific abdominal pain, urinary retention, prostatitis, sp4 urethritis. Data reviewed: vital signs, nurses notes, lab test result(s), radiologic studies, CT scan, ultrasound. Consideration of Admission/Observation Escalation of care including admission/observation considered. ED course: Ultrasound revealed evidence of left epididymitis, CT has revealed hepatic cirrhosis which is longstanding and chronic. Splenomegaly is chronic. 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 And there is also developing nonocclusive small proximal portal vein thrombus. There is fluid containing right inguinal hernia. These are nonemergent findings. Patient will be prescribed cephalexin, Flagyl, tramadol, Phenergan. Will be advised to take Tylenol as needed. Patient states Motrin is contraindicated secondary to history of prior GI bleed and variceal bleed. . 07/10 01:08 Order name: CBC with Diff sp4 07/10 01:08 Order name: CMP; Complete Time: 02:38 sp4 07/10 01:08 Order name: Lipase; Complete Time: 02:38 sp4 07/10 01:08 Order name: Urinalysis w/ reflexes; Complete Time: 03:18 sp4 07/10 01:58 Order name: CBC Smear Scan EDMS 07/10 01:08 Order name: CT Abd/Pelvis - IV Contrast Only sp4 07/10 01:09 Order name: US Scrotum Testicles sp4 07/10 01:08 Order name: IV Saline Lock; Complete Time: 01:34 sp4 07/10 01:08 Order name: Labs collected and sent; Complete Time: 01:34 sp4 Administered Medications: 01:33 Drug: NS 0.9% IV 1000 ml IV at 1 bolus Per protocol; 1000 mL bolus Route: IV; Rate: 1 rv bolus; Site: right forearm; 03:54 Follow up: Response: No adverse reaction; IV Status: Completed infusion; IV Intake: ha1 1000ml 01:33 Drug: TORadol - Ketorolac IVP 15 mg IVP once Route: IVP; Site: right forearm; rv 03:55 Follow up: Response: No adverse reaction; Marked relief of symptoms ha1 01:33 Drug: Ondansetron IVP 4 mg IVP once; over 2 minutes Route: IVP; Site: right forearm; rv 03:55 Follow up: Response: No adverse reaction; Marked relief of symptoms ha1 01:33 Drug: morphine IVP or IV 4 mg IVP once over 4 mins Route: IVP; Infused Over: 4 mins; rv Site: right forearm; 02:00 Follow up: Response: No adverse reaction; Marked relief of symptoms; Pain is decreased; ha1 RASS: Alert and Calm (0) 01:33 Drug: Rocephin - Rocephin (cefTRIAXone) IVPB 1 grams IVPB once over 30 mins; (mix in 50 rv mL NS) Route: IVPB; Infused Over: 30 mins; Site: right forearm; 02:00 Follow up: Response: No adverse reaction; IV Status: Completed infusion; IV Intake: [id number] 01:33 Drug: metroNIDAZOLE IVPB 500 mg 100 ml IVPB at 200 ml/hr once over 30 mins Volume: 100 rv ml; Route: IVPB; Rate: 200 ml/hr; Infused Over: 30 mins; Site: right forearm; 03:00 Follow up: Response: No adverse reaction; IV Status: Completed infusion; IV Intake: [id number] 01:33 Drug: Ibuprofen PO 600 mg PO once Route: PO; rv 03:16 Follow up: Response: No adverse reaction; Marked relief of symptoms; Temperature is ha1 decreased Disposition Summary: 07/11/23 03:31 Discharge Ordered Notes: Location: Home sp4 Problem: new sp4 Symptoms: have improved sp4 Condition: Stable sp4 Diagnosis - Epididymitis sp4 - Acute left epididymitis, right inguinal hernia, partial splenic vein thrombosis sp4 Followup: sp4 - With: Private Physician - When: 7 - 10 days - Reason: Recheck today's complaints Followup: sp4 - With: Sonido Faria MD - When: 7 - 10 days - Reason: Recheck today's complaints Discharge Instructions: - Discharge Summary Sheet sp4 - Epididymitis sp4 Forms: - Patient Portal Instructions sp4 Prescriptions: - Cephalexin 500 mg Oral Capsule - take 1 capsule ORAL route every 8 hours for 10 days; 30 capsule; Refills: 0, sp4 Product Selection Permitted - Flagyl 500 mg Oral Tablet - take 1 tablet ORAL route every 8 hours for 10 days; 30 tablet; Refills: 0, sp4 Product Selection Permitted - Tramadol 50 mg Oral tablet - take 1 tablet ORAL route every 8 hours as needed; 25 tablet; Refills: 0, sp4 Product Selection Permitted - promethazine 25 mg Oral tablet - take 1 tablet ORAL route every 6 hours As needed; 30 tablet; Refills: 0, sp4 Product Selection Permitted Signatures: Dispatcher [employer] Frank Crystal RN RN rv Justin Fair MD MD sp4 Bonnie Guerra RN ha1 Corrections: (The following items were deleted from the chart) 01:32 01:06 Allergies: Ibuprofen; rv rv
[2023-07-11 04:15] LABS: Blood Morphology Comment NOT SEEN (NOT SEEN); Platelet Estimate DECR; White Blood Cell Scan OK (OK)
[2023-07-11 04:25] VITALS: BP 110/71; TEMP 98.7; O2SAT 96
--- NOTE | 2023-07-11 11:38 | RAD REPORT ---
EXAM DESCRIPTION: CT - Abdomen Pelvis W Contrast - 07/11/2023 6:48 am CLINICAL HISTORY: Groin and testicular pain COMPARISON: 01/26/2019. TECHNIQUE: CT ABDOMEN PELVIS WITH IV CONTRAST on 07/11/2023 1:08 AM CDT This exam was performed according to our departmental dose-optimization program, which includes autom ated exposure control, adjustment of the mA and/or kV according to patient size and/or use of iterati ve reconstruction technique. FINDINGS: Lower lungs are clear. Abdomen: Liver is moderately cirrhotic in morphology. There is a nonobstructive thrombus within the u pper aspect of the superior mesenteric vein with a small component within the anterior aspect of the proximal portal vein. There is no biliary dilatation. Cholecystectomy was performed. Spleen is enlarg ed measuring 16.3 cm. Pancreas is unremarkable. Adrenal glands are normal. There is a 2 mm mid pole r ight renal calculus. There is no hydronephrosis bilaterally. Abdominal aorta is normal in course and caliber without aneurysm. There is no free air. There is no r etroperitoneal adenopathy. Pelvis: There is no bowel obstruction. Urinary bladder is unremarkable. There is no free fluid. Appen marisel is normal. There is a small right inguinal hernia containing fluid only. Skeleton: There are no acute osseous findings. No suspicious bony lesions. IMPRESSION: Hepatic cirrhosis with splenomegaly. Upper splenic vein nonocclusive thrombus, minimally increased in size with developing nonocclusive sm all proximal portal vein thrombus. Fluid-containing right inguinal hernia. Electronically signed by: Juan M Hollis MD 07/11/2023 03:12 AM CDT Due to temporary technical issues with the PACS/Fluency reporting system, reports are being signed by the in house radiologist without review as a courtesy to ensure prompt reporting. The interpreting r adiologist is fully responsible for the content of the report.
--- NOTE | 2023-07-11 13:56 | RAD REPORT ---
EXAM DESCRIPTION: US - Scrotum Testicles - 07/11/2023 1:56 am CLINICAL HISTORY: 72 years Male, pain left testicle COMPARISON: 01/12/2021 TECHNIQUE: Real-time sonographic images of the scrotal contents obtained using a linear multi hertz transducer. Color and spectral Doppler imaging was also obtained. FINDINGS: Testicles: The right testicle measures3.9 x 1.8 x 3.1 cm. The left testicle measures4.3 x 3.1 x 2.7 cm. No solid intratesticular mass identified. Homogenous echogenicity of the testicles. Epididymis: Mild enlargement and increased vascularity of the left epididymis. Hydrocele: Trace right hydrocele. Fluid within the right inguinal canal. Mild complex appearing left hydrocele. Blood flow: Normal arterial and venous blood flow identified bilaterally. Other: No additional findings. IMPRESSION: 1. Blood flow identified in the testicles bilaterally. 2. Mild enlargement and increased vascularity of the left epididymis. These findings could be seen with epididymitis. 3. Mild complex left hydrocele. 4. Fluid within the right inguinal canal. Electronically signed by: Mateo Lazar DO 07/11/2023 02:31 AM CDT M Due to temporary technical issues with the PACS/Fluency reporting system, reports are being signed by the in house radiologist without review as a courtesy to ensure prompt reporting. The interpreting r adiologist is fully responsible for the content of the report.
== END ==
LOC: ER 00:47
DX: N45.1 Epididymitis (principal); K40.90 Unilateral inguinal hernia, without obstruction or gangrene, not specified as recurrent; I82.890 Acute embolism and thrombosis of other specified veins; K74.60 Unspecified cirrhosis of liver
CPT/HCPCS: 85025; 81001; 36415; 83690; 80053; 74177; 76870; Q9967; J2405; J7030; J0696

== ENCOUNTER 2023-07-14 12:16 | Inpatient (IN) | payer OTHER ==
[2023-07-14] MEDS ORDERED: ACETAMINOPHEN 325 MG TABLET ONE (13:17)
[2023-07-14] MEDS ORDERED: MORPHINE 2 MG/ML SYR ONE (13:17)
[2023-07-14] MEDS ORDERED: ONDANSETRON 4 MG/2 ML VIAL ONE (13:17)
[2023-07-14] MEDS ORDERED: NA CHLORIDE 0.9% 1,000 ML ONE (13:18)
[2023-07-14] MEDS ORDERED: Levofloxacin 750mg IV 750 MG/150 ML BAG IV ONE (13:18)
[2023-07-14 13:19] LABS: Absolute Eosinophils 0.1 K/uL (0-0.5); Absolute Lymphocytes (CBC) 0.4 K/uL (0.7-4.9); Absolute Monocytes 0.7 K/uL (0.1-1.3); Absolute Neutrophil 3.4 K/uL (1.8-8.0); Basophils % 0.8 % (0-1.3); Eosinophils % 1.7 % (0-4.4); Hematocrit 40.6 % (39.6-49.0); Hemoglobin 13.6 g/dL (13.6-17.9); MCH 30.5 pg (27.0-35.0); MCHC 33.5 g/dL (32.0-36.0); MCV 91.1 fL (80-100); MPV 8.4 fL (7.6-11.3); Monocytes % 15.4 % (3.3-12.3); Neutrophils % 73.1 % (41.7-73.7); Platelets 104 thou/uL (152-406); RBC Red Blood Cell Count 4.46 M/uL (4.33-5.43); Red Cell Distribution Width 14.2 % (12.1-15.2)
[2023-07-14 13:36] LABS: Albumin/Globulin Ratio 0.7 (1.1-1.8); Anion Gap 9.1 mEq/L (5.0-15.0); Bilirubin Total 1.6 mg/dL (0.2-1.0); Globulin 4.6 g/dL (2.3-3.5); Potassium 3.1 mEq/L (3.5-5.1); Protein, Total 7.6 g/dL (6.4-8.2)
[2023-07-14] MEDS ORDERED: POTASSIUM 25 MEQ EFFERV TAB ONE (14:07)
--- NOTE | 2023-07-14 14:15 | ER ---
Nurse's Notes [facility] Name: Kole Casas Jr Age: 72 yrs Sex: Male : 1950 Arrival Date: 07/14/2023 Time: 12:16 Bed 7 Private MD: Diagnosis: Epididymitis-failed out patient treatment;Unilateral inguinal hernia, without obstruction or gangrene, not specified as recurrent;Fever, unspecified;Hypokalemia;Unspecified cirrhosis of liver;Altered mental status, unspecified;Hydrocele, unspecified-bilateral Presentation: 07/13 12:28 Chief complaint: Patient states: fever off and on since last here on this past Sunday, ko1 thinks its a side effect from Tramadol and she said he was hallucinating. Coronavirus screen: At this time, the client does not indicate any symptoms associated with coronavirus-19. Ebola Screen: No symptoms or risks identified at this time. Initial Sepsis Screen: Does the patient meet any 2 criteria? No. Patient's initial sepsis screen is negative. Does the patient have a suspected source of infection? No. Patient's initial sepsis screen is negative. Risk Assessment: Do you want to hurt yourself or someone else? Patient reports no desire to harm self or others. Onset of symptoms was July 14, 2023. 12:28 Method Of Arrival: Ambulatory ko1 12:28 Acuity: MINNIE 3 ko1 Triage Assessment: 12:34 General: Appears in no apparent distress. Behavior is calm, cooperative, appropriate ko1 for age. Pain: Complains of pain in left testicle. Historical: - Allergies: 12:34 No Known Allergies; ko1 - PMHx: 12:34 cirrhosis of liver; ko1 - Immunization history:: Adult Immunizations up to date. - Social history:: Smoking status: Patient denies any tobacco usage or history of. Screenin:10 [facility] ED Fall Risk Assessment (Adult) History of falling in the last 3 months, iw including since admission No falls in past 3 months (0 pts) Confusion or Disorientation No (0 pts) Intoxicated or Sedated No (0 pts) Impaired Gait No (0 pts) Mobility Assist Device Used No (0 pt) Altered Elimination No (0 pt) Score/Fall Risk Level 0 - 2 = Low Risk. Abuse screen: Denies threats or abuse. Denies injuries from another. Nutritional screening: No deficits noted. Tuberculosis screening: No symptoms or risk factors identified. Assessment: 12:50 General: Appears in no apparent distress. Behavior is calm, cooperative. Neuro: Level iw of Consciousness is awake, alert, obeys commands. Respiratory: Airway is patent Respiratory pattern is regular, symmetrical. 13:09 General: Reports fever for feeling ill for fatigue for. Cardiovascular: Patient's skin iw is warm and dry. GI: Abdomen is flat, non-distended. : Swelling noted on scrotum. Derm: Skin is intact, is healthy with good turgor. Musculoskeletal: Range of motion: intact in all extremities. 15:56 Reassessment: Patient appears in no apparent distress at this time. Patient and/or iw family updated on plan of care and expected duration. Pain level reassessed. Patient is alert, oriented x 3, equal unlabored respirations, skin warm/dry/pink. Patient states feeling better. Vital Signs: 12:28 BP 150 / 93; Pulse 97; Resp 18; Temp 99.8; Pulse Ox 98% on R/A; ko1 13:10 BP 166 / 92; Pulse 92; Resp 18; Pulse Ox 98% on R/A; iw 16:41 Weight 77.11 kg; iw ED Course: 12:18 Patient arrived in ED. rg4 12:34 Triage completed. ko1 12:34 Arm band placed on right wrist. Patient placed in an exam room, on a stretcher, on ko1 pulse oximetry, Patient notified of wait time. 12:43 Dave Sandy MD is Attending Physician. [facility] 12:48 Daina Morgan, AIDA is Primary Nurse. iw 13:03 Initial lab(s) drawn, by nh, sent to lab. First set of blood cultures drawn by me. iw 13:09 Inserted saline lock: 20 gauge in right antecubital area, using aseptic technique. iw Blood collected. 14:03 US Scrotum Testicles In Process Unspecified. EDMS 14:05 CT Abd/Pelvis - IV Contrast Only In Process Unspecified. EDMS 14:12 Raffy Degroot MD is Hospitalizing Provider. [facility] 15:50 Provided Education on: . iw 16:51 Patient has correct armband on for positive identification. Placed in gown. iw 16:51 Initial lab(s) drawn, by me, sent to lab. Inserted saline lock: 20 gauge in right iw forearm, using aseptic technique. Blood collected. 17:34 No provider procedures requiring assistance completed. Patient did not have IV access iw during this emergency room visit. Administered Medications: 14:23 Drug: NS 0.9% IV 500 ml IV at bolus once Route: IV; Rate: bolus; Site: right iw antecubital; 15:00 Follow up: IV Status: Completed infusion iw 14:25 Drug: Ondansetron IVP 4 mg IVP once; over 2 minutes Route: IVP; Site: right antecubital;iw 15:00 Follow up: Response: No adverse reaction iw 14:25 Drug: Potassium PO Effervescent Tablet 25 mEq PO once; dissolve in 4 ounces of water or iw juice Route: PO; 14:45 Follow up: Response: No adverse reaction iw 14:26 Drug: morphine IVP or IV 2 mg IVP once over 4 mins Route: IVP; Infused Over: 4 mins; iw Site: right antecubital; 15:30 Follow up: Response: No adverse reaction; Pain is decreased iw 14:30 Drug: Acetaminophen PO 650 mg PO once Route: PO; iw 15:30 Follow up: Response: No adverse reaction iw 14:30 Drug: levofloxacin IVPB 750 mg 150 ml IVPB once over 90 mins Volume: 150 ml; Route: iw IVPB; Infused Over: 90 mins; Site: right antecubital; 15:30 Follow up: IV Status: Completed infusion iw 14:53 Drug: NS 0.9% IV 1000 ml IV at 125 ml/hr continuous Route: IV; Rate: 125 ml/hr; Site: iw right antecubital; 15:58 Follow up: IV Status: IV converted to saline lock iw Medication: 13:09 VIS not applicable for this client. iw Outcome: 14:14 Decision to Hospitalize by Provider. lilia 17:35 Admitted to Med/surg accompanied by tech, via wheelchair, iw 17:35 Condition: good 17:35 Discharge instructions given to patient, family, Instructed on the need for admit, Demonstrated understanding of instructions, 17:36 Patient left the ED. iw Signatures: Dispatcher [employer] Dave Bellamy MD MD cha Williams, Irene RN RN iw Sophia Jenkins rg4 Kamilah Sandhu RN RN ko1 Corrections: (The following items were deleted from the chart) 12:34 12:28 Chief complaint: Patient states: fever off and on since last here on this past ko1 Sunday, thinks its a side effect from Tramadol ko1
--- NOTE | 2023-07-14 14:15 | EDPHYS ---
Physician Documentation [facility] Name: Kole Casas Jr Age: 72 yrs Sex: Male : 1950 Arrival Date: 07/14/2023 Time: 12:16 Bed 7 Private MD: ED Physician Dave Sandy HPI: 07/13 13:57 This 72 yrs old Male presents to ER via Ambulatory with complaints of Fever. lilia 13:57 This 72 yrs old Male presents to ER via Ambulatory with complaints of Fever. lilia 13:57 The patient reports fever, that was measured at 100 degrees Fahrenheit. Onset: The lilia symptoms/episode began/occurred 3 day(s) ago. Modifying factors: Recent medications:. Associated signs and symptoms: Pertinent positives: abdominal pain. Severity of symptoms: At their worst the symptoms were moderate in the emergency department the symptoms are unchanged. The patient has experienced similar episodes in the past, several times. The patient has been recently seen by a physician: here , er placed on abx. Historical: - Allergies: 12:34 No Known Allergies; ko1 - PMHx: 12:34 cirrhosis of liver; ko1 - Immunization history:: Adult Immunizations up to date. - Social history:: Smoking status: Patient denies any tobacco usage or history of. ROS: 13:59 Constitutional: Negative for fever, chills, and weight loss, Eyes: Negative for injury, lilia pain, redness, and discharge, ENT: Negative for injury, pain, and discharge, Neck: Negative for injury, pain, and swelling, Cardiovascular: Negative for chest pain, palpitations, and edema, Respiratory: Negative for shortness of breath, cough, wheezing, and pleuritic chest pain, Back: Negative for injury and pain, MS/Extremity: Negative for injury and deformity, Skin: Negative for injury, rash, and discoloration, Neuro: Negative for headache, weakness, numbness, tingling, and seizure, Psych: Negative for depression, anxiety, suicide ideation, homicidal ideation, and hallucinations, Allergy/Immunology: Negative for hives, rash, and allergies, Endocrine: Negative for neck swelling, polydipsia, polyuria, polyphagia, and marked weight changes, Hematologic/Lymphatic: Negative for swollen nodes, abnormal bleeding, and unusual bruising, 13:59 Abdomen/GI: Positive for abdominal pain, abdominal cramps, right inguinal hernia, indirect , reducable, 13:59 : Positive for flank pain, urinary frequency, burning with urination, testicular pain of the left testicle, Exam: 13:59 Head/Face: Normocephalic, atraumatic. Eyes: Pupils equal round and reactive to light, lilia extra-ocular motions intact. Lids and lashes normal. Conjunctiva and sclera are non-icteric and not injected. Cornea within normal limits. Periorbital areas with no swelling, redness, or edema. ENT: Nares patent. No nasal discharge, no septal abnormalities noted. Tympanic membranes are normal and external auditory canals are clear. Oropharynx with no redness, swelling, or masses, exudates, or evidence of obstruction, uvula midline. Mucous membranes moist. Neck: Trachea midline, no thyromegaly or masses palpated, and no cervical lymphadenopathy. Supple, full range of motion without nuchal rigidity, or vertebral point tenderness. No Meningismus. Chest/axilla: Normal chest wall appearance and motion. Nontender with no deformity. No lesions are appreciated. Cardiovascular: Regular rate and rhythm with a normal S1 and S2. No gallops, murmurs, or rubs. Normal PMI, no JVD. No pulse deficits. Respiratory: Lungs have equal breath sounds bilaterally, clear to auscultation and percussion. No rales, rhonchi or wheezes noted. No increased work of breathing, no retractions or nasal flaring. Back: No spinal tenderness. No costovertebral tenderness. Full range of motion. Skin: Warm, dry with normal turgor. Normal color with no rashes, no lesions, and no evidence of cellulitis. MS/ Extremity: Pulses equal, no cyanosis. Neurovascular intact. Full, normal range of motion. Neuro: Awake and alert, GCS 15, oriented to person, place, time, and situation. Cranial nerves II-XII grossly intact. Motor strength 5/5 in all extremities. Sensory grossly intact. Cerebellar exam normal. Normal gait. Psych: Awake, alert, with orientation to person, place and time. Behavior, mood, and affect are within normal limits. 13:59 Constitutional: The patient appears febrile, 13:59 Abdomen/GI: Inspection: abdomen appears normal, Bowel sounds: normal, active, Palpation: mild abdominal tenderness, in the right lower quadrant and left lower quadrant, Liver: no appreciated palpable abnormalities, Hernia: noted in the right femoral area, Vital Signs: 12:28 BP 150 / 93; Pulse 97; Resp 18; Temp 99.8; Pulse Ox 98% on R/A; ko1 13:10 BP 166 / 92; Pulse 92; Resp 18; Pulse Ox 98% on R/A; iw 16:41 Weight 77.11 kg; iw MDM: 12:43 Patient medically screened. lilia 14:01 Differential diagnosis: nonspecific abdominal pain, viral Infection, bacterial lilia infection, UTI. Data reviewed: vital signs, nurses notes, lab test result(s), radiologic studies, CT scan, ultrasound. Consideration of Admission/Observation Escalation of care including admission/observation considered. I considered the following discharge prescriptions or medication management in the emergency department Medications were administered in the Emergency Department. See MAR. Test considered but Not performed: EKG: no ekg. 07/13 12:53 Order name: CBC with Diff; Complete Time: 13:56 [facility] 07/13 12:53 Order name: Comprehensive Metabolic Panel; Complete Time: 13:56 [facility] 07/13 12:53 Order name: Blood Culture Adult (2) [facility] 07/13 12:53 Order name: Lipase; Complete Time: 13:56 [facility] 07/13 12:53 Order name: Lactate w/ 2H reflex if indic.; Complete Time: 13:56 [facility] 07/13 15:14 Order name: Urinalysis w/ reflexes [facility]IL 07/13 15:14 Order name: Basic Metabolic Panel [facility] 07/13 15:14 Order name: Basic Metabolic Panel [facility] 07/13 15:14 Order name: Basic Metabolic Panel [facility]IL 07/13 15:14 Order name: Basic Metabolic Panel [facility] 07/13 15:14 Order name: Basic Metabolic Panel [facility]IL 07/13 15:14 Order name: Basic Metabolic Panel [facility]IL 07/13 15:14 Order name: CBC with Automated Diff EDMS 07/13 15:14 Order name: CBC with Automated Diff EDMS 07/13 15:14 Order name: CBC with Automated Diff EDMS 07/13 15:14 Order name: CBC with Automated Diff EDMS 07/13 15:14 Order name: CBC with Automated Diff EDMS 07/13 15:14 Order name: CBC with Automated Diff EDMS 07/13 15:14 Order name: Lipid Profile [facility]IL 07/13 15:14 Order name: Lipid Profile EDMS 07/13 15:14 Order name: Magnesium EDMS 07/13 15:14 Order name: Magnesium EDMS 07/13 15:14 Order name: Magnesium EDMS 07/13 15:14 Order name: Magnesium EDMS 07/13 15:14 Order name: Magnesium EDMS 07/13 15:14 Order name: Magnesium EDMS 07/13 15:14 Order name: Phosphorus EDMS 07/13 15:14 Order name: Phosphorus EDMS 07/13 15:14 Order name: Phosphorus EDMS 07/13 15:14 Order name: Phosphorus EDMS 07/13 15:14 Order name: Phosphorus EDMS 07/13 15:14 Order name: Phosphorus EDMS 07/13 16:45 Order name: PT-INR iw 07/13 16:45 Order name: Ptt, Activated iw 07/13 17:02 Order name: Protime (+INR) EDMS 07/13 17:02 Order name: PTT, Activated Partial Thromb EDMS 07/13 12:53 Order name: US Scrotum Testicles [facility] 07/13 12:53 Order name: CT Abd/Pelvis - IV Contrast Only [facility] 07/13 15:14 Order name: CONS Physician Consult EDIL Administered Medications: 14:23 Drug: NS 0.9% IV 500 ml IV at bolus once Route: IV; Rate: bolus; Site: right iw antecubital; 15:00 Follow up: IV Status: Completed infusion iw 14:25 Drug: Ondansetron IVP 4 mg IVP once; over 2 minutes Route: IVP; Site: right antecubital;iw 15:00 Follow up: Response: No adverse reaction iw 14:25 Drug: Potassium PO Effervescent Tablet 25 mEq PO once; dissolve in 4 ounces of water or iw juice Route: PO; 14:45 Follow up: Response: No adverse reaction iw 14:26 Drug: morphine IVP or IV 2 mg IVP once over 4 mins Route: IVP; Infused Over: 4 mins; iw Site: right antecubital; 15:30 Follow up: Response: No adverse reaction; Pain is decreased iw 14:30 Drug: Acetaminophen PO 650 mg PO once Route: PO; iw 15:30 Follow up: Response: No adverse reaction iw 14:30 Drug: levofloxacin IVPB 750 mg 150 ml IVPB once over 90 mins Volume: 150 ml; Route: iw IVPB; Infused Over: 90 mins; Site: right antecubital; 15:30 Follow up: IV Status: Completed infusion iw 14:53 Drug: NS 0.9% IV 1000 ml IV at 125 ml/hr continuous Route: IV; Rate: 125 ml/hr; Site: iw right antecubital; 15:58 Follow up: IV Status: IV converted to saline lock iw Disposition Summary: 07/14/23 14:14 Hospitalization Ordered Notes: Hospitalization Status: Inpatient Admission lilia Provider: Raffy Degroot cha Location: Telemetry/MedSur (Inpatient) lilia Condition: Fair lilia Problem: new lilia Symptoms: have improved lilia Bed/Room Type: Standard [facility] Room Assignment: 401(07/14/23 15:33) eb Diagnosis - Epididymitis - failed out patient treatment lilia - Unilateral inguinal hernia, without obstruction or gangrene, not specified as lilia recurrent - Fever, unspecified lilia - Hypokalemia lilia - Unspecified cirrhosis of liver lilia - Altered mental status, unspecified lilia - Hydrocele, unspecified - bilateral lilia Forms: - Medication Reconciliation Form lilia - SBAR form lilia - Leadership Thank You Letter lilia Signatures: Dispatcher [employer] EDDave Anderson MD MD cha Williams, Irene, RN RN iw Cassie Lane Kathy, RN RN ko1 Corrections: (The following items were deleted from the chart) 15:06 12:53 Urinalysis+U.LAB.BRZ ordered. EDIL EDMS 15:06 13:56 Urinalysis+U.LAB.BRZ reviewed. [facility] EDIL 15:33 14:14 lilia eb
--- NOTE | 2023-07-14 14:15 | RAD REPORT ---
EXAM DESCRIPTION: US - Scrotum Testicles - 07/14/2023 2:01 pm CLINICAL HISTORY: FEVER COMPARISON: Scrotum Testicles dated 07/11/2023 FINDINGS: The right testicle measures 4.2 x 2.2 x 3 cm with volume of 14.2 mL. No intratesticular ma sses or evidence of testicular torsion. The left testicle measures 4.4 x 3 x 3.3 cm with volume of 23.1 cc .. No intratesticular masses or ev idence of testicular torsion. 10 mm right epididymal cyst. Moderate complex left hydrocele with septations. Enlarged and hypervascu lar left epididymis. No abscess identified. The left testicle is hypervascular . Large volume of fluid in the right inguinal canal. IMPRESSION: 1. Enlarged hypervascular left epididymis and left testicle consistent with epididymo-or chitis. No abscess . Moderate complex left hydrocele. 2. Bilateral testicular blood flow. 3. Fluid in the right inguinal canal.
--- NOTE | 2023-07-14 14:17 | RAD REPORT ---
EXAM DESCRIPTION: CTAbdomen Pelvis W Contrast - 07/14/2023 2:03 pm CLINICAL HISTORY: ABD PAIN COMPARISON: Abdomen Pelvis W Contrast dated 07/11/2023; Scrotum Testicles dated 07/14/2023 TECHNIQUE: CT of the abdomen and pelvis was performed. All CT scans are performed using dose optimization technique as appropriate and may include automated exposure control or mA/KV adjustment according to patient size. FINDINGS: Lower chest: No acute abnormality. Lower paraesophageal varices . Mild circumferential thi ckened distal esophagus. Liver: Cirrhotic liver morphology. Hypervascular lesion in the hepatic dome measuring 2 cm is noted. Biliary: Cholecystectomy. Similar extrahepatic biliary duct dilatation which may be related to the po stcholecystectomy state. Stomach: Wall thickening of the gastric antrum. Duodenum: No significant focal abnormality. Pancreas: No significant abnormality. Spleen: Splenomegaly. Mild perisplenic fluid. Adrenal: No suspicious lesions. Kidney/ureter: No hydronephrosis. No renal calculi. Retroperitoneum: No retroperitoneal adenopathy. Vascular: No aneurysm. Nonocclusive portal vein thrombus is similar in size. Atherosclerosis. Bowel: Mild diffuse colonic wall thickening. Scattered air-fluid levels.. Peritoneum: Fluid present along the right inguinal canal may be from ascites. Bladder: Grossly unremarkable. Reproductive: Hypervascular left testicle and epididymis. Scrotal edema. Bones: No acute fracture. Multilevel degenerative changes are present in the spine. Other: n/a IMPRESSION: 1. Cirrhosis with evidence of portal hypertension including mild ascites and splenomegal y. Nonocclusive portal vein thrombus is also noted. Possible hepatic dome lesion which could represen t hepatocellular carcinoma. Nonemergent evaluation with hepatic protocol MRI is recommended. Could al so further evaluate with AFP. 2. Gastric and colonic wall thickening may be related to portal hypertension (i.e. Portal gastropathy /colopathy).
--- NOTE | 2023-07-14 16:09 | P.HP ---
Certification for Inpatient Patient admitted to: Inpatient With expected LOS: >2 Midnights Practitioner: I am a practitioner with admitting privileges, knowledge of patient current condition, hospital course, and medical plan of care. Services: Services provided to patient in accordance with Admission requirements found in Title 42 Section 412.3 of the Code of Federal Regulations Patient History Date of Service: 07/14/23 Reason for admission: Left epididymoorchitis History of Present Illness: Kole Casas is a 72 year old male with Pmhx liver cirrhosis who presents today with complaints of high fever for the last 3 days. He has failed outpatient antibiotics. He has a history of alcohol abuse and has started hallucinating at home. is at the bedside and reports he started hallucinations and believes it was the tramadol that he started taking when he was discharged from the ED previously. She also believes Levaquin causes hallucinations in his condition. Initial vitals BP 150 / 93; Pulse 97; Resp 18; Temp 99.8; Pulse Ox 98% on R/A Laboratory evaluation sodium 135, potassium 3.1, glucose 157, total bili 1.6, AST 19, ALT 17, alk phos 147, lipase 52, lactic acid 1.4, serum alcohol level pending, UA pending US scrotum testicles reports "1. Enlarged hypervascular left epididymis and left testicle consistent with epididymoorchitis. No abscess . Moderate complex left hydrocele. 2. Bilateral testicular blood flow. 3. Fluid in the right inguinal canal." CT abdomen pelvis reports "1. Cirrhosis with evidence of portal hypertension including mild ascites and splenomegaly. Nonocclusive portal vein thrombus is also noted. Possible hepatic dome lesion which could represent hepatocellular carcinoma. Nonemergent evaluation with hepatic protocol MRI is recommended. Could also further evaluate with AFP. 2. Gastric and colonic wall thickening may be related to portal hypertension (i.e. Portal gastropathy/colopathy)." Kole will be admitted to hospitalist service for further evaluation and treatment of epididymoorchitis. Dr. Warren to be consulted. Allergies No Known Drug Allergies Allergy (Verified 08/11/14 07:09) Unknown Home Medications: Omeprazole 1 tab PO BID 08/11/14 Ferrous Sulfate [Feosol] 325 mg PO DAILY #60 tab 08/14/14 Propranolol [Inderal*] 10 mg PO BID #60 tab 08/14/14 - Past Medical/Surgical History Diabetic: No -: Hepatitis C -: Htn -: GI bleeding -: Hernia repair-1995 - Family History Mother -: Heart disease, Cancer Notes: breast cancer, past away 1964, Father -: Heart disease, Hypertension Notes: past away 1992 - Social History Alcohol use: Yes CD- Drugs: No Caffeine use: Yes Review of Systems General: Fever, Chills Genitourinary: Other (swollen scrotum) Neurological: Other (Hallucinations) Physical Examination - Physical Exam General: Alert, In no apparent distress, Oriented x3 HEENT: Atraumatic, Normocephalic, PERRLA Neck: Supple, 2+ carotid pulse no bruit, JVD not distended Respiratory: Clear to auscultation bilaterally, Normal air movement Cardiovascular: Normal pulses, Regular rate/rhythm, Normal S1 S2 Capillary refill: <2 Seconds Gastrointestinal: Normal bowel sounds, Soft and benign Musculoskeletal: Other (Right inguinal swelling) Integumentary: No rashes Neurological: Normal speech, Normal strength at 5/5 x4 extr External genitalia: Edema (Bilateral scrotum) - Studies Laboratory Data (last 24 hrs) 07/14/23 07/14/23 13:03 13:03 WBC 4.70 Hgb 13.6 Hct 40.6 Plt Count 104 L Sodium 135 L Potassium 3.1 L BUN 9 Creatinine 0.87 Glucose 157 H Total Bilirubin 1.6 H AST 19 ALT 17 Alkaline Phosphatase 147 H Lipase 52 Assessment and Plan - Plan Assessment and plan Acute epididymoorchitis Right inguinal hernia Febrile -CT abd/pelvis reports "Fluid present along the right inguinal canal may be from ascites. Hypervascular left testicle and epididymis. Scrotal edema." -Failed outpatient treatment -Levaquin daily -Consult Dr. Warren -Consult to Dr. Davis -Pain control -Tylenol -UA pending History of Liver cirrhosis with portal hypertension Nonocclusive portal vein thrombus Hepatic dome lesion- possible hepatocellular carcinoma -CT abd/pelvis reports 1. Cirrhosis with evidence of portal hypertension including mild ascites and splenomegaly. Nonocclusive portal vein thrombus is also noted. Possible hepatic dome lesion which could represent hepatocellular carcinoma. Nonemergent evaluation with hepatic protocol MRI is recommended. Could also further evaluate with AFP.2. Gastric and colonic wall thickening may be related to portal hypertension (i.e. Portal gastropathy/colopathy)." -Outpatient follow-up -heparin gtt Alcohol abuse Hallucinations - reports hallucinations at home -CIWA protocol -CIWA score 0 -Ativan PRN -Serum alcohol level pending -Telemetry Hypertension Hydralazine PRN restart home medication if currently being treated Hypokalemia -Potassium 3.1 -Replaced in the ED -Monitor in AM labs DVT PPx heparin drip Full code LOS 2 days Discharge Plan: Home Plan to discharge in: 48 Hours - Advance Directives Does patient have a Living Will: No Does patient have a Durable POA for Healthcare: Yes Time Spent Managing Pts Care (In Minutes): 50
[2023-07-14] MEDS: INSULIN REGULAR (HUMAN) 100 UNIT/ML SQ SCH (16:30)
[2023-07-14 17:02] LABS: PT Prothrombin Time 17.1 SECONDS (9.5-12.5); PTT, Activated Partial Thromb 33.7 SECONDS (24.3-36.9); Protime INR 1.58
[2023-07-14] MEDS ORDERED: HEPARIN/D5W 25,000 UNIT/500 ML BAG IV ONE (17:03)
[2023-07-14] MEDS ORDERED: HEPARIN 5000 UNIT/ML 1 ML VIAL ONE (17:03)
[2023-07-14] MEDS: HEPARIN/D5W 25,000 UNIT/500 ML BAG IV SCH (17:20)
[2023-07-14] MEDS ORDERED: LORazepam 2 MG/ML VIAL IV PRN ×2 (17:50)
[2023-07-14] MEDS ORDERED: HALOPERIDOL LACT 5 MG/ML INJ IM PRN (17:50)
[2023-07-14] MEDS ORDERED: FLUMAZENIL 0.1 MG/ML (5 mL VIAL) IV PRN (17:50)
[2023-07-14] MEDS: LORazepam 2 MG/ML VIAL IV SCH (18:00)
[2023-07-14] MEDS ORDERED: HYDRALAZINE HCL 20 MG/ML VIAL IV PRN (18:19)
[2023-07-14] MEDS: chlordiazePOXIDE HCl 5 MG CAP PO ONE (18:21)
[2023-07-14] MEDS ORDERED: MELATONIN 5 MG TABLET PO PRN (18:39)
--- NOTE | 2023-07-14 18:46 | P.HP ---
Date of Service: 07/14/23 Chart has been reviewed. Events of ER visit have been noted. Reviewed my nurse practitioners note. I had a long discussion with the family and they did notify me that patient was diagnosed with cirrhosis in 1999 and had hepatitis C and used to be a heavy drinker. He quit drinking around that same time. He has not had anything to drink for about 20 years. He had some confusion after he got antibiotics and pain medication on Sunday. He said after he took the pain medication he started getting a little confused. It was felt that it may be related to alcohol use. Patient does not have a significant history patient used to drink in the past but he denies any alcohol use. I will go ahead and DC his delirium tremens orders. These he has Ativan and Librium. Will go ahead and DC his. Patient does not have inguinal hernia. Patient has hydrocele on the left. Will go ahead and treat the epididymitis with IV antibiotics. Will give him some medication for inflammation. Will get urology consultation for Sunday. For his portal vein thrombosis, go ahead and get an MRI to further evaluate. This can also evaluate for a possible liver mass. I will go ahead and talk to MRI Sunday morning to make sure we have the proper MRI ordered. Antibiotics and anti-inflammatories. Anticipate DC on Sunday.
[2023-07-14 19:43] VITALS: BMI 25.1
[2023-07-14] MEDS: ONDANSETRON 4 MG/2 ML VIAL IV PRN (20:04)
[2023-07-14] MEDS: MORPHINE 2 MG/ML SYR IV PRN (20:04)
[2023-07-14] MEDS ORDERED: chlordiazePOXIDE HCl 5 MG CAP PO SCH (21:00)
[2023-07-15] MEDS: AMPICILLIN/SULBACT 3 GM in NA CHLORIDE 0.9% 100 ML IVPB SCH (00:33)
[2023-07-15] MEDS: ACETAMINOPHEN 500 MG TAB PO PRN (02:34)
[2023-07-15 03:38] LABS: Absolute Eosinophils 0.1 K/uL (0-0.5); Absolute Lymphocytes (CBC) 0.5 K/uL (0.7-4.9); Absolute Monocytes 0.8 K/uL (0.1-1.3); Absolute Neutrophil 3.4 K/uL (1.8-8.0); Basophils % 0.5 % (0-1.3); Eosinophils % 1.3 % (0-4.4); Hematocrit 36.4 % (39.6-49.0); Hemoglobin 12.5 g/dL (13.6-17.9); Lymphocytes % 10.9 % (15.3-44.8); MCH 30.9 pg (27.0-35.0); MCHC 34.4 g/dL (32.0-36.0); MCV 89.8 fL (80-100); MPV 8.8 fL (7.6-11.3); Neutrophils % 70.3 % (41.7-73.7); Percent Reticulocyte Count 0.78 % (0.4-2.05); Platelets 94 thou/uL (152-406); RBC Red Blood Cell Count 4.05 M/uL (4.33-5.43); Red Cell Distribution Width 14.1 % (12.1-15.2)
[2023-07-15 03:47] LABS: Anion Gap 10.4 mEq/L (5.0-15.0); Magnesium 1.8 mg/dL (1.6-2.4); Phosphorus 2.2 mg/dL (2.5-4.9); Potassium 3.4 mEq/L (3.5-5.1)
[2023-07-15 03:56] LABS: Albumin 2.7 g/dL (3.4-5.0); Albumin/Globulin Ratio 0.7 (1.1-1.8); Anion Gap 9.4 mEq/L (5.0-15.0); Bilirubin Total 1.3 mg/dL (0.2-1.0); Phosphorus 2.2 mg/dL (2.5-4.9); Potassium 3.4 mEq/L (3.5-5.1); Protein, Total 6.7 g/dL (6.4-8.2)
[2023-07-15 03:57] LABS: Magnesium 1.8 mg/dL (1.6-2.4)
[2023-07-15] MEDS: POTASS/SODIUM PHOSPHATE 1 PKT POWD.PACK PO SCH ×2 (08:00→12:33)
[2023-07-15] MEDS: Levofloxacin 750mg IV 750 MG/150 ML BAG IV SCH (08:15)
[2023-07-15] MEDS: MULTIVITAMIN TAB PO SCH ×2 (09:00→12:36)
[2023-07-15] MEDS: FOLIC ACID 1 MG TABLET PO SCH ×2 (09:00→12:34)
[2023-07-15] MEDS: POTASSIUM CL SA 10 MEQ TAB PO ONE ×2 (09:00→12:34)
[2023-07-15] MEDS: THIAMINE HCL 100 MG TABLET PO SCH ×2 (09:00→12:34)
--- NOTE | 2023-07-15 09:07 | P.PN ---
Date of Service: 07/15/23 Subjective Sleeping but easily aroused no new complaints, comfortable Febrile OVN ROS 10 point ROS as noted above, otherwise negative Physical Exam General: AAOx3, NAD HEENT: Atraumatic, Normocephalic, PERRLA Neck: Supple, 2+ carotid pulse no bruit, JVD not distended Respiratory: Clear to auscultation bilaterally, Symmetrical chest wall movement Cardiovascular: RRR, Normal S1 S2 present, 2+ peripheral pulses Capillary refill: <2 Seconds Gastrointestinal: Normal bowel sounds, Soft and benign, NT Musculoskeletal: Other (Right inguinal swelling) Integumentary: No rashes Neurological: Normal speech, Normal strength at 5/5 x4 extr External genitalia: Edema (Bilateral scrotum) Vitals Reviewed Problem list Acute epididymoorchitis Febrile History of Liver cirrhosis with portal hypertension Nonocclusive portal vein thrombus Hepatic dome lesion- possible hepatocellular carcinoma Alcohol abuse Hallucinations Hypertension Hypokalemia Assessment and Plan Acute epididymoorchitis Febrile -CT abd/pelvis reports "Fluid present along the right inguinal canal may be from ascites. Hypervascular left testicle and epididymis. Scrotal edema." -Failed outpatient treatment -Levaquin Daily, Unasyn Q6H -Consult Dr. Warren -Consult to Dr. Davis -Pain control -Tylenol -UA pending History of Liver cirrhosis with portal hypertension Nonocclusive portal vein thrombus Hepatic dome lesion- possible hepatocellular carcinoma -CT abd/pelvis reports 1. Cirrhosis with evidence of portal hypertension including mild ascites and splenomegaly. Nonocclusive portal vein thrombus is also noted. Possible hepatic dome lesion which could represent hepatocellular carcinoma. Nonemergent evaluation with hepatic protocol MRI is recommended. Could also further evaluate with AFP.2. Gastric and colonic wall thickening may be related to portal hypertension (i.e. Portal gastropathy/colopathy)." -T bili 1.3, AST 28, ALT 15, Alk Phos 135 -Outpatient follow-up -heparin gtt -MRA abdomen w/ contrast- Sunday -MRI abdomen w/wo- Sunday Alcohol abuse- 20 years ago Hallucinations 2/2 antibiotic and tramadol use - reports hallucinations at home -CIWA protocol-cancelled -CIWA score 0 -Ativan PRN- cancelled -Serum alcohol level 0 -Telemetry Hypertension -Hydralazine PRN -restart home medication if currently being treated Hypokalemia -Potassium 3.4 -Monitor in AM labs DVT PPx heparin drip Full code LOS 2 days <Vera Horton - Last Filed: 07/15/23 12:46> Chart has been reviewed. Events of the last 24 hours have been noted. Case discussed with GARRETT. I performed a substantial part of the MDM during this patient's care today. I personally made or approved the documented management plan and acknowledge its risk of complications. I agree with the findings and documentation provided in the GARRETT's notes.Questionable portal vein thrombosis. Patient no alcohol use and hepatitis C is cured. Patient remains with scrotal cellulitis/epididymitis. Continue with antibiotic therapy.Arrange for discharge placement. MRI is pending. <Raffy Degroot - Last Filed: 07/16/23 05:14>
[2023-07-15 09:57] LABS: Blood Morphology Comment NOT SEEN (NOT SEEN); Platelet Estimate DECR; White Blood Cell Scan OK (OK)
[2023-07-15] MEDS: MAGNESIUM SULFATE 1 gm IVPB 1 GM/100 ML BAG IV ONE (10:01)
[2023-07-15] MEDS: NA CHLORIDE 0.9% 100 ML ONE (10:01)
[2023-07-15 10:20] LABS: Sqamous Epithelial <5 /HPF (None Seen); Urine Bacteria None Seen /HPF (<20); Urine Bilirubin NEGATIVE (Negative); Urine Blood Negative (Negative); Urine Clarity Clear (Clear); Urine Color Yellow (Yellow); Urine Culture Reflex Order NOT NEEDED; Urine Glucose NEGATIVE (Negative); Urine Ketones 1+ (Negative); Urine Microscopic Reflex YN ORDER UMIC; Urine Mucus Slight /HPF (None Seen); Urine Nitrite NEGATIVE (Negative); Urine Protein TRACE (Negative); Urine Urobilinogen Normal (Normal); Urine WBC <5 /HPF (<5)
--- NOTE | 2023-07-15 13:22 | CON ---
Date of Consultation: 07/15/2023 Reason For Consultation: Portal vein thrombosis and liver mass with cirrhosis of the liver. History Of Present Illness: Patient is a 72-year-old male with history of cirrhosis of the liver from prior alcohol abuse and hepatitis C, also history of hypertension, GI bleed, hernia repair in 1995, and laparoscopic cholecystectomy. The patient admitted to hospital due to recurrent admiss ion from left epididymo-orchitis with infection and fever. The patient was discharged home recently and told that if he had recurrence of fever, come back to the hospital, which he did. Ultrasound barbara wed inflammation, infection in the left testicle epididymis area. The patient on CT scan of the abdo men revealed portal vein thrombosis with portal hypertension, mild ascites, splenomegaly, 2 cm hyperv ascular lesion at the hepatic dome and gastric and colonic wall thickening. Past Medical History: Significant for hypertension, end-stage liver disease, cirrhosis secondary to prior alcohol abuse and hepatitis C, prior GI bleed, hernia repair in 1995, and laparoscopic cholecys tectomy. Home Medications: Include omeprazole, iron supplements, and Inderal, which is propranolol. Allergies: NKDA. Social History: , 3 children. No tobacco. No alcohol. Quit alcohol in 1997. Family History: Father of hypertension and coronary artery disease at the age of 78 and also lindquist d respiratory issues according to the son. Mother at 42 with a history of breast cancer, hypert ension, respiratory disease, and coronary artery disease. Review of Systems: Consistent with left epididymo-orchitis with left testicular pain, tenderness, fever, chills. No nig ht sweats. No melena, hematochezia, melena, coffee-ground, hematuria, dysuria, polydipsia, muscle ac hes, joint aches, backaches, depression, anxiety or other. Physical Examination: VITAL SIGNS: 5 feet 9 inches, 170 pounds, BMI 25.1 kg/sq m. temperature of 98.2 degrees Fahrenheit, pulse 94, respirations 17, blood pressure 155/81, O2 saturation 98%. HEENT: Normocephalic, atraumatic. Anicteric. Pupils equal, round, and reactive to light. Extraocu lar movements are intact. Oropharynx clear. Neck: Supple. No masses. Respirations: Clear to auscultation bilaterally. Cardiac: Regular rate and rhythm. Gastrointestinal: Positive bowel sounds. Soft, nontender, nondistended. No hepatosplenomegaly. Extremities: No clubbing, cyanosis, or edema. 2+ pulses. Neuro: Alert and oriented x3. Grossly nonfocal. 5/5 motor sensation to light touch. Laboratory Data: The patient has a white count of 4.9, hemoglobin of 12.5, hematocrit 36.4, MCV of 9 0, platelet count 94, polys of 70%, lymphocytes 11%, monocytes 17%, eosinophils 1%. PT of 17.1; INR of 1.6; PTT of 33.7, it is up on heparin now to 97.7. Sodium 136, potassium 3.4, chloride 104, bicar b 26, BUN 9, creatinine of 0.8, glucose 122, lactic acid 1.4, calcium 8.1, phosphorus 2.2, magnesium 1.8, total bilirubin 1.3, AST of 28, ALT of 15, alkaline phosphatase 136, total protein 6.7, albumin 2.7. Triglycerides 55, cholesterol 97, LDL 55, HDL 31. UA: Ketones 1+, 5 to 10 RBCs, otherwise neg ative. Toxicology: Alcohol less than 10. He has some trace protein in urine as well. CT abdomen a nd pelvis revealed portal vein thrombosis, portal hypertension, mild ascites, splenomegaly, 2 cm hype rvascular lesion in the hepatic dome, and gastric colonic wall thickening. Impression: 1.Portal vein thrombosis with CT scan revealing portal vein thrombosis and portal hypertension. 2.A 2 cm hypervascular lesion at the hepatic dome noted on CT scan. We will need to investigate wit h MRI and alpha fetoprotein blood test. 3.Mild ascites. 4.Splenomegaly noted on CT scan as well. 5.Cirrhosis secondary to prior alcohol abuse and hepatitis C. 6.Epididymo-orchitis infection of the left testicle area. Continue IV antibiotics. 7.History of hypertension, cirrhosis secondary to alcohol abuse, hepatitis C, GI bleed, prior hernia repair in 1995, and laparoscopic cholecystectomy. Recommendation: 1.Check MRI, MRA. 2.Check alpha fetoprotein. 3.Agree with IV heparin and will need long-term anticoagulation it appears for this portal vein thro mbosis. WS/MODL Voice ID: [id number] Report ID: [id number]
[2023-07-15] MEDS ORDERED: carvediloL 12.5 MG TAB PO SCH (17:00)
[2023-07-15] MEDS: carvediloL 12.5 MG TAB PO SCH (17:28)
[2023-07-15] MEDS: APIXABAN 5 MG TABLET PO SCH (21:43)
[2023-07-15] MEDS: TAMSULOSIN 0.4 MG SR CAP PO SCH (21:43)
[2023-07-15] MEDS: NA CHLORIDE 0.9% 250 ML ONE (23:28)
[2023-07-16 07:18] LABS: Absolute Eosinophils 0.1 K/uL (0-0.5); Absolute Lymphocytes (CBC) 0.5 K/uL (0.7-4.9); Absolute Neutrophil 4.5 K/uL (1.8-8.0); Basophils % 0.5 % (0-1.3); Eosinophils % 1.3 % (0-4.4); Hemoglobin 12.1 g/dL (13.6-17.9); Lymphocytes % 8.8 % (15.3-44.8); MCH 31.1 pg (27.0-35.0); MCHC 34.7 g/dL (32.0-36.0); MCV 89.7 fL (80-100); MPV 8.2 fL (7.6-11.3); Monocytes % 15.9 % (3.3-12.3); Neutrophils % 73.5 % (41.7-73.7); Platelets 92 thou/uL (152-406); Red Cell Distribution Width 14.5 % (12.1-15.2)
[2023-07-16 07:41] LABS: Anion Gap 9.1 mEq/L (5.0-15.0); Phosphorus 2.5 mg/dL (2.5-4.9); Potassium 4.1 mEq/L (3.5-5.1)
[2023-07-16] MEDS: PANTOPRAZOLE 40MG TABLET PO SCH (09:54)
[2023-07-16] MEDS: ASPIRIN EC 81 MG TAB PO SCH (09:54)
--- NOTE | 2023-07-16 09:55 | P.PN ---
Date of Service: 07/16/23 Subjective MRI today Sleeping but arouses easily, aware of the testing today afebrile OVN, feeling better ROS 10 point ROS as noted above, otherwise negative Physical Exam General: No acute distress, calm, AAOx3 HEENT: Atraumatic, Normocephalic, PERRLA Neck: Supple, 2+ carotid pulse no bruit, JVD not distended Respiratory: Clear to auscultation bilaterally, Symmetrical chest wall movement, on room air Cardiovascular: S1-S2 present, regular rate and rhythm, no murmur noted 2+ peripheral pulses Capillary refill: <2 Seconds Gastrointestinal: Normal bowel sounds, Soft and benign on palpation, NT, distended (obese) Musculoskeletal: Other (Right inguinal swelling) Integumentary: No rashes Neurological: Normal speech, Normal strength at 5/5 x4 extr External genitalia: Edema (Bilateral scrotum) Vitals Reviewed Problem list Acute epididymoorchitis Scrotal cellulitis Febrile History of Liver cirrhosis with portal hypertension Nonocclusive portal vein thrombus Hepatic dome lesion- possible hepatocellular carcinoma Alcohol abuse Hallucinations Hypertension Hypokalemia Assessment and Plan Acute epididymoorchitis Scrotal cellulitis Febrile -CT abd/pelvis reports "Fluid present along the right inguinal canal may be from ascites. Hypervascular left testicle and epididymis. Scrotal edema." -Failed outpatient treatment -Levaquin Daily, Unasyn Q6H -Consult Dr. Warren -Consult to Dr. Davis -Pain control -Tylenol -UA neg for an infectious process History of Liver cirrhosis with portal hypertension Nonocclusive portal vein thrombus Hepatic dome lesion- possible hepatocellular carcinoma -CT abd/pelvis reports 1. Cirrhosis with evidence of portal hypertension including mild ascites and splenomegaly. Nonocclusive portal vein thrombus is also noted. Possible hepatic dome lesion which could represent hepatocellular carcinoma. Nonemergent evaluation with hepatic protocol MRI is recommended. Could also further evaluate with AFP.2. Gastric and colonic wall thickening may be related to portal hypertension (i.e. Portal gastropathy/colopathy)." -initial T bili 1.3, AST 28, ALT 15, Alk Phos 135 -Outpatient follow-up -continue heparin gtt -MRI abdomen reports "Arterial phase enhancing lesions in the right lobe of the liver as detailed with washout kinetics are highly suspicious for multifocal HCC. Moderate liver cirrhosis pattern is seen with portal vein thrombosis present." -MELD score 16 see below Alcohol abuse- 20 years ago Hallucinations 2/2 antibiotic and tramadol use - reports hallucinations at home -Serum alcohol level 0 -Telemetry Hypertension -Hydralazine PRN -restart home medication if currently being treated Hypokalemia -Potassium 4.1 -Monitor in AM labs MELD Na (UNOS/OPTN) from [employer] Message [employer] on 07/16/2023 All calculations should be rechecked by clinician prior to use RESULT SUMMARY: 16 points MELD Score (2016)* 6.0% Estimated 3-Month Mortality DVT PPx heparin drip Full code LOS 2 days <Vera Horton - Last Filed: 07/16/23 12:24> Patient was seen and examined. Events of the last 24 hours have been noted. Spoke with with GARRETT regarding patient's clinical picture after evaluating and examining the patient independently. I performed a substantial part of the MDM during this patient's care today. I personally made or approved the documented management plan and acknowledge its risk of complications. I agree with the findings and documentation provided in the GARRETT's notes. Patient's pain is well controlled. Epididymitis is improved. Patient will need outpatient follow-up for the hydrocele. MRI of the abd is pending. patient is probably going to need outpatient GI and urology follow-up. <Raffy Degroot - Last Filed: 07/17/23 04:12>
--- NOTE | 2023-07-16 11:57 | RAD REPORT ---
EXAM DESCRIPTION: MRI - Mri Abdomen W/Wo Cont - 07/16/2023 11:44 am CLINICAL HISTORY: Portal vein thrombosis/Liver mass Liver lesion, abdominal pain COMPARISON: Abdomen Pelvis W Contrast dated 07/14/2023 FINDINGS: Moderate liver cirrhosis is seen. Arterial phase enhancing lesion is present in the superi or anterior right lobe liver measuring 27 x 19 mm. This demonstrates washout kinetics on more delayed sequences. There is an additional smaller arterial phase enhancing lesion seen in the anterior inferior right lo be measuring 9 mm. This likely demonstrates subtle washout characteristics as well. Significant thrombus is seen within the SMV and portal vein. The spleen is mildly enlarged. Trace asc ites. The pancreas, adrenal glands and kidneys are within normal limits. No bulky lymphadenopathy see n. IMPRESSION: Arterial phase enhancing lesions in the right lobe of the liver as detailed with washout kinetics are highly suspicious for multifocal HCC. Moderate liver cirrhosis pattern is seen with portal vein thrombosis present.
[2023-07-16] MEDS: carvediloL 25 MG TAB PO SCH (17:17)
[2023-07-16] MEDS ORDERED: LORazepam 2 MG/ML VIAL IV SCH (18:00)
--- NOTE | 2023-07-17 04:26 | P.PN ---
Date of Service: 07/16/23 Received call back from Dr. 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 Patient had a referral to see the [facility] heme/oncologist, Dr. Elliott, As patient had thrombocytopenia from diagnosis of cirrhosis. Patient was diagnosed with hepatitis C and alcoholic cirrhosis about 20 years ago. Patient was treated for the hepatitis- C. Patient states his viral load has been undetectable. He is considered to be cured from hepatitis- C. He has not had alcohol in 20 years. Patient was treated with Eliquis for 6 months. The thrombosis were considered to be chronic and no further anticoagulation was necessary. However, in light of the findings of the right liver lobe masses x2 GI wanted me to contact Oncology regarding anticoagulation. I spoke with Dr. palomo, and she stated that since patient has what appears to be hepatocellular carcinoma patient's risk of progression of thrombosis is increased and to prevent the progression of patient's thrombosis we need to resume Eliquis. She wanted to do prophylactic dosing at 2.5 mg twice a day. She is happy to follow-up with the patient in the outpatient setting as patient will need a referral to [facility] hepatology. Dr. Aguiar stated that he would be happy to send the referral as well. They both mentioned that they would have pt follow-up with Dr. Reardon, hepatology at [facility]. At this time, patient is clinically doing well and patient will discharge in the morning with continued antibiotic therapy. Patient can see Urology in the outpatient setting to further manage the epididymitis which should resolve over the next 2 weeks, as well as monitoring the hydrocele which does not need immediate intervention. However, once the epididymitis has been treated, the primary focus should be on treatment of the liver cancer. AFP levels are pending.
--- NOTE | 2023-07-17 04:31 | P.DS ---
Discharge Date: 07/17/23 Disposition: ROUTINE DISCHARGE Discharge Condition: GOOD Reason for Admission: Left epididymoorchitis Consultations: GI, Dwayne Brief History of Present Illness: Kole Casas is a 72 year old male with Pmhx liver cirrhosis who presents today with complaints of high fever for the last 3 days. He has failed outpatient antibiotics. He has a history of alcohol abuse and has started hallucinating at home. is at the bedside and reports he started hallucinations and believes it was the tramadol that he started taking when he was discharged from the ED previously. She also believes Levaquin causes hallucinations in his condition. Initial vitals BP 150 / 93; Pulse 97; Resp 18; Temp 99.8; Pulse Ox 98% on R/A Laboratory evaluation sodium 135, potassium 3.1, glucose 157, total bili 1.6, AST 19, ALT 17, alk phos 147, lipase 52, lactic acid 1.4, serum alcohol level pending, UA pending US scrotum testicles reports "1. Enlarged hypervascular left epididymis and left testicle consistent with epididymoorchitis. No abscess . Moderate complex left hydrocele. 2. Bilateral testicular blood flow. 3. Fluid in the right inguinal canal." CT abdomen pelvis reports "1. Cirrhosis with evidence of portal hypertension including mild ascites and splenomegaly. Nonocclusive portal vein thrombus is also noted. Possible hepatic dome lesion which could represent hepatocellular carcinoma. Nonemergent evaluation with hepatic protocol MRI is recommended. Could also further evaluate with AFP. 2. Gastric and colonic wall thickening may be related to portal hypertension (i.e. Portal gastropathy/colopathy)." Hospital Course: Patient had aggressive treatment for his epididymitis which improved. His scrotal pain has significantly improved. He does have a hydrocele which will need to be followed as an outpatient with urology. He has an appointment to see Dr. Warren in the near future. He also follows up with gastroenterology, Dr. Laura, and he has been following up with hematology in the past, Dr. Doshi, for his thrombocytopenia that was caused by his cirrhosis. MRI did reveal that patient had a portal vein thrombosis as well as superior mesenteric vein thromb osis. When I talked to the patient about this he remembered that he was told that he had this in the past and after review of chart he was treated with superior vein thrombosis and portal vein thrombosis by Dr. Conklin, hematology/oncology in 2019 and 2019. He stated that they gave him 6 months of Eliquis. After the Eliquis was completed, it was deemed that he no longer needed anymore anticoagulation. I discussed this with Dr. Laura, and Dr. Doshi. They were agreeable that patient has a chronic thrombosis that does not need persistent anticoagulation. However, in the setting of newly found hepatocellular carcinoma of the right lobe of the liver-patient has 2 lesions- they felt it may be best to treat the chronic portal vein thrombosis and chronic superior mesenteric vein thrombosis with anticoagulation so there is not propagation of the clot. Patient will follow-up with oncology and GI, and both specialties have already decided that patient will need referral to [facility] hepatology, Dr. Reardon. I have gone over this extensively with the patient as well as his . Patient will be discharged home today on antibiotics and Eliquis. He will follow-up with urology for the epididymitis and the hydrocele. He will follow-up with gastroenterology/oncology for the portal vein thrombosis and the superior mesenteric vein thrombosis, and he will get a referral to [facility] hepatology, Dr. Reardon. At this time, patient is stable for discharge. Vital Signs/Physical Exam: Temp Pulse Resp BP Pulse Ox 99.6 F 98 H 18 122/64 92 07/17/23 04:00 07/17/23 04:00 07/17/23 04:00 07/17/23 04:00 07/17/23 04:00 General: Alert, In no apparent distress, Oriented x3 Laboratory Data at Discharge: WBC 6.10 thou/uL (4.3-10.9) 07/16/23 06:46 Hgb 12.1 g/dL (13.6-17.9) L 07/16/23 06:46 Hct 35.0 % (39.6-49.0) L 07/16/23 06:46 Plt Count 92 thou/uL (152-406) L 07/16/23 06:46 PT 17.1 SECONDS (9.5-12.5) H 07/14/23 16:49 INR 1.58 07/14/23 16:49 APTT 34.3 SECONDS (24.3-36.9) 07/15/23 17:00 Sodium 134 mEq/L (136-145) L 07/16/23 06:46 Potassium 4.1 mEq/L (3.5-5.1) 07/16/23 06:46 BUN 9 mg/dL (7-18) 07/16/23 06:46 Creatinine 0.76 mg/dL (0.70-1.30) 07/16/23 06:46 Glucose 112 mg/dL (74-106) H 07/16/23 06:46 Phosphorus 2.5 mg/dL (2.5-4.9) 07/16/23 06:46 Magnesium 2.0 mg/dL (1.6-2.4) 07/16/23 06:46 Total Bilirubin 1.3 mg/dL (0.2-1.0) H 07/15/23 02:45 AST 28 U/L (15-37) 07/15/23 02:45 ALT 15 U/L (16-61) L 07/15/23 02:45 Alkaline Phosphatase 136 U/L (45-117) H 07/15/23 02:45 Triglycerides 55 mg/dL (<150) 07/15/23 02:45 Cholesterol 97 mg/dL (<200) 07/15/23 02:45 HDL Cholesterol 31 mg/dL (40-60) L 07/15/23 02:45 Cholesterol/HDL Ratio 3.13 07/15/23 02:45 Lipase 52 U/L (13-75) 07/14/23 13:03 Home Medications: Omeprazole 1 tab PO DAILY 08/11/14 Aspirin [Aspirin EC 81 MG] 81 mg PO DAILY 07/14/23 Carvedilol [Coreg] 12.5 mg PO BID 07/14/23 Tamsulosin HCl [Flomax] 0.4 mg PO BID 07/14/23 Thiamine HCl [Vitamin B-1*] 100 mg PO DAILY #30 tablet 07/16/23 Amox/Clavulanate [Augmentin 875-125 Tab] 1 each PO BID #20 tab 07/17/23 Apixaban [Eliquis] 2.5 mg PO BID #60 tablet 07/17/23 levoFLOXacin [Levaquin] 500 mg PO DAILY #7 tab 07/17/23 New Medications: Amox/Clavulanate [Augmentin 875-125 Tab] 1 each PO BID #20 tab Apixaban [Eliquis] 2.5 mg PO BID #60 tablet levoFLOXacin [Levaquin] 500 mg PO DAILY #7 tab Thiamine HCl [Vitamin B-1*] 100 mg PO DAILY #30 tablet Physician Discharge Instructions: -DC IV and DC home -Follow-up with PCP in 1 to 2 weeks -Follow-up with [facility] in 1 to 2 weeks -Follow-up with Oncology, Dr. Doshi, in 1-2 weeks -Follow-up with Urology in 1 to 2 weeks -Please call Dr. Degroot at [phone] if any questions regarding hospital stay -Please call nursing station at [phone] if any nursing or medication questions -Return to the emergency room if symptoms worsen Diet: Low sodium Activity: Fall precautions Followup: Rosalia Pierre FNP [Primary Care Provider] - Time spent managing pt's care (in minutes): 35
[2023-07-17 07:06] LABS: Absolute Eosinophils 0.1 K/uL (0-0.5); Absolute Lymphocytes (CBC) 0.6 K/uL (0.7-4.9); Absolute Monocytes 0.9 K/uL (0.1-1.3); Absolute Neutrophil 4.3 K/uL (1.8-8.0); Basophils % 0.4 % (0-1.3); Eosinophils % 1.2 % (0-4.4); Hemoglobin 12.3 g/dL (13.6-17.9); Lymphocytes % 10.6 % (15.3-44.8); MCH 30.8 pg (27.0-35.0); MCHC 34.2 g/dL (32.0-36.0); MCV 90.1 fL (80-100); MPV 8.6 fL (7.6-11.3); Monocytes % 15.2 % (3.3-12.3); Neutrophils % 72.6 % (41.7-73.7); Nucleated Red Blood Cells % 0.1 % (0-0); Platelets 96 thou/uL (152-406)
[2023-07-17 07:13] LABS: PTT, Activated Partial Thromb 34.7 SECONDS (24.3-36.9); Protime INR 2.04
[2023-07-17 07:20] LABS: Albumin 2.7 g/dL (3.4-5.0); Albumin/Globulin Ratio 0.7 (1.1-1.8); Anion Gap 8.8 mEq/L (5.0-15.0); Bilirubin Direct 0.5 mg/dL (0-0.2); Bilirubin Indirect, Calculated 0.6 mg/dL (0.2-0.8); Bilirubin Total 1.1 mg/dL (0.2-1.0); Globulin 4.1 g/dL (2.3-3.5); Magnesium 1.8 mg/dL (1.6-2.4); Phosphorus 2.9 mg/dL (2.5-4.9); Potassium 3.8 mEq/L (3.5-5.1); Protein, Total 6.8 g/dL (6.4-8.2)
[2023-07-17 11:13] VITALS: O2SAT 96
[2023-07-17 12:06] VITALS: BP 122/71; TEMP 99.1
== END 2023-07-17 12:10 | disposition home or self-care (01) | DRG 727 ==
LOC: ER 12:16 → ERHOLD 15:09 → 4TH 15:41
PROVIDERS: ADMIT Hospitalist; ATTEND Hospitalist
DX: N45.3 Epididymo-orchitis (principal); I81 Portal vein thrombosis; K55.059 Acute (reversible) ischemia of intestine, part and extent unspecified; K76.6 Portal hypertension; R44.3 Hallucinations, unspecified; C22.0 Liver cell carcinoma; N45.1 Epididymitis; E87.6 Hypokalemia; N43.3 Hydrocele, unspecified; F10.10 Alcohol abuse, uncomplicated; K70.31 Alcoholic cirrhosis of liver with ascites; D69.6 Thrombocytopenia, unspecified; N50.89 Other specified disorders of the male genital organs; T40.425A Adverse effect of tramadol, initial encounter; T36.95XA Adverse effect of unspecified systemic antibiotic, initial encounter; R16.1 Splenomegaly, not elsewhere classified; Z79.82 Long term (current) use of aspirin; Z79.02 Long term (current) use of antithrombotics/antiplatelets; Z79.01 Long term (current) use of anticoagulants; Z79.899 Other long term (current) drug therapy
CPT/HCPCS: 36415; 74177; 74183; 76870; 80048; 80053; 80061; 80076; 81001; 82077; 82105; 82947; 83605; 83690; 83735; 84100; 85025; 85044; 85379; 85610; 85730; 87040; 87522; 96361; 96365; 96375; 99285; A9577; J0295; J1644; J1815; J2270; J2405; J3475; J7030; J7050; Q9967

== ENCOUNTER 2024-01-16 12:27 | Observation (INO) | payer OTHER ==
[2024-01-14 16:08] LABS: Absolute Eosinophils 0.1 K/uL (0-0.5); Absolute Lymphocytes (CBC) 0.8 K/uL (0.7-4.9); Absolute Monocytes 0.5 K/uL (0.1-1.3); Absolute Neutrophil 1.8 K/uL (1.8-8.0); Basophils % 0.7 % (0-1.3); Eosinophils % 2.9 % (0-4.4); Hematocrit 38.3 % (39.6-49.0); Lymphocytes % 24.1 % (15.3-44.8); MCHC 33.9 g/dL (32.0-36.0); MCV 91.5 fL (80-100); MPV 9.2 fL (7.6-11.3); Monocytes % 15.7 % (3.3-12.3); Neutrophils % 56.6 % (41.7-73.7); Nucleated Red Blood Cells % 0.1 % (0-0); Platelets 59 thou/uL (152-406); RBC Red Blood Cell Count 4.19 M/uL (4.33-5.43); Red Cell Distribution Width 15.4 % (12.1-15.2)
[2024-01-14 16:27] LABS: Anion Gap 8.2 mEq/L (5.0-15.0); Potassium 4.2 mEq/L (3.5-5.1)
[2024-01-14 17:17] LABS: Blood Morphology Comment NOT SEEN (NOT SEEN); Platelet Estimate DECR; White Blood Cell Scan OK (OK)
--- NOTE | 2024-01-15 10:26 | EKG ---
Test Date: 2024-01-14 Test Time: 15:42:27 Account Support Rep: JERRI MEASUREMENT RESULTS: Intervals: Rate: 63 SC: 184 QRSD: 84 QT: 456 QTc: 466 [place]: P: 58 SC: 184 QRS: 54 T: 53 INTERPRETIVE STATEMENTS: Normal sinus rhythm Normal ECG Compared to ECG 08/10/2014 23:48:58 Prolonged QT interval no longer present Electronically Signed On 01-15-24 10:24:00 CDT by Genaro Marquis
[2024-01-16] MEDS ORDERED: LIDOCAINE HCL/EPINEPHRINE 20 ML MDV ONE (12:51)
[2024-01-16] MEDS ORDERED: Ringers Lactate 1,000 ML IV ONE ×2 (12:53→15:34)
[2024-01-16] MEDS ORDERED: LIDOCAINE 2% MPF 5 ML VIAL ONE (13:23)
[2024-01-16] MEDS ORDERED: ROCURONIUM 50 MG/5 ML VIAL IV ONE ×2 (13:23→14:30)
[2024-01-16] MEDS ORDERED: propofoL 200 MG/20 ML VIAL IV ONE (13:23)
[2024-01-16] MEDS ORDERED: FENTANYL CITR 100 MCG/2 ML ONE ×2 (13:23→14:52)
[2024-01-16] MEDS ORDERED: CEFAZOLIN SODIUM 1 GM/VIAL ONE (13:33)
[2024-01-16] MEDS ORDERED: CEFAZOLIN SODIUM 1 GM/VIAL IVP ONE (14:02)
[2024-01-16] MEDS ORDERED: LIDOCAINE 1% W/EPI 1:100,000 30 ML VIAL IJ ONE ×2 (14:09)
[2024-01-16] MEDS ORDERED: EPHEDRINE SULF 50 MG/ML VIAL ONE (14:24)
[2024-01-16] MEDS ORDERED: NEOSTIGMINE 1 MG/ML -10 ML VIAL ONE (15:35)
[2024-01-16] MEDS ORDERED: GLYCOPYRROLATE 0.2 MG/ML SYR ONE (15:35)
--- NOTE | 2024-01-16 15:53 | P.OP ---
Preoperative diagnosis: Bilateral inguinal hernias - LEFT recurrent Postoperative diagnosis: Bilateral inguinal hernias - LEFT recurrent Primary procedure: Open Bilateral inguinal hernia repair with mesh Anesthesia: GETA + Local Estimated blood loss: <10cc Specimen: Cord Lipoma - RIGHT Findings: large RIGHT and small left inguinal hernias Complications: None Implants: Medium on RIGHT, small on LEFT inguinal plug, Patch on RIGHT Transferred to: Recovery Room Condition: Good
[2024-01-16] MEDS ORDERED: ONDANSETRON 4 MG/2 ML VIAL ONE ×2 (16:09→21:10)
[2024-01-16] MEDS ORDERED: HYDROMORPHONE HCL 1 MG/ML INJ ONE (16:09)
[2024-01-16] MEDS ORDERED: HYDROCODONE/APAP 7.5/325 MG TAB ONE (16:58)
[2024-01-16 17:24] VITALS: O2SAT 99
--- NOTE | 2024-01-16 19:51 | OP ---
Date of Procedure: 01/16/2024 Surgeon: Sonido Faria MD, Preoperative Diagnosis: Bilateral inguinal hernias with the left recurrent hernia. Postoperative Diagnosis: Bilateral inguinal hernias with the left recurrent hernia. Procedure Performed: Open bilateral inguinal hernia repair with mesh. Anesthesia: General endotracheal plus local with 1% lidocaine. Estimated Blood Loss: Less than 10 cc. Specimen: Cord lipoma on the right. Findings: There was a large right and small left inguinal hernias. Complications: None. Implants: Medium plug and patch hernia repair system on the right. A small left hernia plug on the left. No patch used on the left. Disposition: The patient transferred to recovery room in good condition. Procedure In Detail: After informed consent was obtained, patient was brought into the operating selvin m, prepped and draped in the usual sterile fashion after adequate anesthesia was achieved. I began o n the right side where a larger inguinal hernia was palpated. I dissected down through the skin usin g a 10 blade down through subcutaneous tissues after appropriately anesthetizing the skin and dissect ing down through Camper fat and Nikunj fascia, exposed the external oblique aponeurosis. This was op ened sharply first with a 15 blade, ultimately opened in its entirety using Metzenbaum scissors to th e proximal distal area protecting the ilioinguinal, iliohypogastric nerve throughout. Spermatic cord and structures were encircled at this point. Very large hernia sac was appreciated to be adjacent t o the spermatic cord structures continuing its course all the way down into the scrotum and it was ad jacent to and it had firm apposition to the testicle, at this point. The spermatic cord and structur es were dissected around off the hernia sac and a [place] drain was passed around this. I then orlando nued the dissection to remove the hernia sac from the spermatic cord and structures. In addition, th ere was a cord lipoma which was appreciated on the spermatic cord structures, which was ligated at th is point using a 0 Vicryl suture and sent off for pathologic examination after ligating with the elec trocautery. After the hernia sac was reduced into the deep inguinal ring in its normal anatomic posi tion, I then placed the patient in steep Trendelenburg position, palpated the area and found that a m edium Covidien plug and patch hernia repair system would be adequate. At this point, I hydrated the plug and placed it in the preperitoneal space. At this point, I deployed it in its entirety, at this point, circumferentially securing it around the deep inguinal ring using interrupted 2-0 PDS sutures with good apposition of the mesh. At this point, the area was cleansed once again and I placed a he rnia patch under the spermatic cord and structures and secured to the pubic tubercle and medial aspec t around the medial and lateral shelving edges of the undersurface of the inguinal ligament and the i nternal oblique aponeurosis medially. I then reconstituted the deep inguinal ring using the same set 2-0 PDS sutures, which was used for the same securing of the medial and lateral aspects of the patch . At this point, the area was irrigated once again. The external oblique aponeurosis which was foun d to be quite thin was closed in a running fashion using a 3-0 Vicryl suture and the Camper fat and S carpa fascia was closed with same set 3-0 Vicryl suture. Deep dermal plane was closed using the same set 3-0 Vicryl suture in an interrupted fashion. Skin was closed with a 4-0 Monocryl in a running f ashion. Dermabond was placed over top. At this point, I turned my attention to the left inguinal ar ea where a previous hernia repair had been performed. I followed that previous incision down to subc utaneous tissues after appropriately anesthetizing the skin with a 15 blade. I then dissected down t hrough Camper fat and Nikunj fascia to expose the external oblique aponeurosis which had heavily scar red in. I dissected down through this using sharp dissection ultimately encircling the spermatic cor d and structures. I found the deep inguinal ring, at this point, which had a small defect in it antonia cent to a mesh, which was palpable, at this point. There was additionally palpation of a patch which was placed through this. This was gone through in its entirety at this point without issue. The pl ug was slightly off-kilter but was in a reasonable anatomic position to allow for placement of additi onal patch/plug in this area. Therefore, I sized the plug which could be a small plug. It would be appropriate to close the defect, at this point, return the deep inguinal ring contents to the preperi toneal space and deployed a small plug, at this point, securing it circumferentially around using the same set 2-0 PDS sutures in an interrupted fashion without issue. I then reclosed the external obli que aponeurosis over the top of this with the same set 3-0 Vicryl suture securing the external obliqu e aponeurosis in its entirety, at this point. I then irrigated the area once again and closed the de ep dermal plane with the same set 3-0 Vicryl suture and skin was closed with a 4-0 Monocryl in a runn ing fashion. Dermabond placed over top. The patient tolerated procedure without incident or complic ation, and transferred to PACU in good condition. All counts were correct at the end of the case. VIRGIL/MAGDALENA Voice ID: [id number] Report ID: [id number]
[2024-01-16] MEDS ORDERED: ONDANSETRON 4 MG/2 ML VIAL IV PRN (21:14)
[2024-01-16] MEDS: ONDANSETRON 4 MG/2 ML VIAL IV ONE (21:15)
--- NOTE | 2024-01-16 21:29 | P.HP ---
Certification for Inpatient Patient admitted to: Observation With expected LOS: <2 Midnights Practitioner: I am a practitioner with admitting privileges, knowledge of patient current condition, hospital course, and medical plan of care. Services: Services provided to patient in accordance with Admission requirements found in Title 42 Section 412.3 of the Code of Federal Regulations Patient History Date of Service: 01/16/24 Reason for admission: Abdominal distention History of Present Illness: 73-year-old gentleman with a history of liver cirrhosis, liver mass, portal vein thrombosis, BPH, history of bilateral inguinal hernia underwent inguinal hernia repair in day surgery. Patient noted to have abdominal distention and acute urinary retention in the recovery room. He also vomited a couple of times. According to nursing staff, patient was given a total of 1200 mL of fluid. Patient was also made to drink more fluids to get him to void. Patient is hospitalized for further evaluation and management of abdominal distention. Allergies tramadol Adverse Reaction (Verified 01/16/24 14:00) Hallucinations Home Medications: Omeprazole 1 tab PO DAILY 08/11/14 Carvedilol [Coreg] 12.5 mg PO BID 07/14/23 Tamsulosin HCl [Flomax] 0.4 mg PO BID 07/14/23 - Past Medical/Surgical History Diabetic: No -: Hepatitis C -: Htn -: GI bleeding -: Liver cirrhosis -: Portal vein thrombosis -: BPH -: Hernia repair-1995 - Family History Mother -: Heart disease, Cancer Notes: breast cancer, past away 1964, Father -: Heart disease, Hypertension Notes: past away 1992 - Social History Alcohol use: Yes CD- Drugs: No Caffeine use: Yes Review of Systems Other: Patient denies abdominal pain, denies fever. Patient denies any shortness of breath or chest pain. Except as documented, all other systems reviewed and negative. Physical Examination - Vital Signs Temperature: 97.7 F Blood Pressure: 141/79 Pulse: 66 Respirations: 16 - Physical Exam General: Alert, In no apparent distress, Oriented x3 HEENT: Atraumatic, Mucous membr. moist/pink, EOMI, Sclerae nonicteric Neck: Supple, JVD not distended Respiratory: Clear to auscultation bilaterally, Normal air movement Cardiovascular: No edema, Regular rate/rhythm, Normal S1 S2 Capillary refill: <2 Seconds Gastrointestinal: Normal bowel sounds, No tenderness, Distended, Ascites Musculoskeletal: No swelling, No tenderness Integumentary: No rashes, No erythema, No cyanosis Neurological: Normal speech, Normal strength at 5/5 x4 extr Lymphatics: No axilla or inguinal lymphadenopathy Assessment and Plan - Problems (Diagnosis) (1) Abdominal distension Current Visit: Yes Status: Acute (2) Liver cirrhosis Current Visit: Yes Status: Acute (3) BPH (benign prostatic hyperplasia) Current Visit: Yes Status: Acute (4) Nausea and vomiting Current Visit: Yes Status: Acute (5) History of esophageal varices Current Visit: Yes Status: Acute - Plan Abdominal distension Liver cirrhosis Patient given significant amount of fluid given post surgery. Ascites suspected, however patient also vomited a couple of times. Place patient on observation Obtain CT abdomen and pelvis to rule out obstruction. IV Lasix for possible ascites. US guided paracentesis if CT abdomen demonstrate large ascites. Empiric IV Zosyn. Keep n.p.o. for now. Antiemetics as needed. Analgesics as needed. Status post bilateral hernia repair Analgesics as needed Empiric antibiotics. History of esophageal varices History of portal vein thrombosis Patient states that he is not on any anticoagulation. Resume Coreg for portal hypertension. DVT prophylaxis: SCD Advance Directive; Full code - Advance Directives Does patient have a Living Will: No Does patient have a Durable POA for Healthcare: Yes
[2024-01-16] MEDS: HYDRALAZINE HCL 20 MG/ML VIAL IV PRN (22:51)
[2024-01-16] MEDS: PROMETHAZINE INJ 25 MG/ML AMP IV PRN (22:51)
[2024-01-17] MEDS: PIPER TAZO 3.375 GM in NA CHLORIDE 0.9% 100 ML IV SCH (00:39)
--- NOTE | 2024-01-17 01:07 | RAD REPORT ---
CLINICAL HISTORY: Abdominal distension. Recent bilateral inguinal hernia surgery. Vomiting. COMPARISON: CT abdomen/pelvis from June 24, 2023. Ultrasound of the abdomen from today TECHNIQUE: CT of the abdomen and pelvis was performed following intravenous administration of iodinat ed contrast. Oral contrast was not administered. Axial, coronal, and sagittal soft tissue window reconstructions were created and sent to PACS. This exam was performed according to our departmental dose-optimization program, which includes autom ated exposure control, adjustment of the mA and/or kV according to patient size and/or use of iterative reconstruction technique. FINDINGS: Thoracic: No significant abnormality. Hepatobiliary: Grossly nodular hepatic contour. At least 2 faint hypodense lesions in the right hepat ic lobe, not fully evaluated on this exam. The gallbladder is surgically absent. No biliary ductal dilatation. Pancreas: Unremarkable. Spleen: Unremarkable. Gastrointestinal: Mild fluid-filled distention of the stomach. No evidence of bowel obstruction or pe rienteric inflammation. The appendix is normal. Small stool burden. Mild left colonic diverticulosis. Adrenals: No abnormality identified in either adrenal gland. Renal: No concerning parenchymal abnormality in either kidney. Tiny nonobstructive right renal calcul us. No hydronephrosis or ureteral calculi bilaterally. Bladder/Reproductive: Urinary bladder is decompressed by a catheter. There is mild subcutaneous edema involving the right scrotum, and anterior abdominal wall. No abscess is visualized. Small right inguinal hernia containing a small amount of fluid and gas. Vascular/Lymphatics: No lymphadenopathy identified by CT size criteria. Abdominal aorta is normal in caliber. Partially occlusive thrombus in the main portal vein slightly extending into the right portal vein, as well as in the superior mesenteric vein. Minimally decreased prominence of the thromb us, especially at the level of the portal confluence. Moderate calcific atherosclerosis. Paraesophageal and gastrohepatic varices. Recanalization of the. Umbilical vein.. Musculoskeletal: No concerning osseous lesion identified. Fluid / peritoneum: Trace perisplenic and pelvic free fluid. Small bubble of free air in the right lo wer quadrant/pelvis. No fluid collections are visualized. Small hematoma in the right lower quadrant/pelvis measuring 4 cm. No active extravasation of contrast. IMPRESSION 1. Recent postsurgical changes from bilateral inguinal hernia repair, including trace residual free air in the right lower quadrant/pelvis with an adjacent small hematoma. No evidence of active bleeding. 2. Mild fluid-filled distention of the stomach. No dilated small bowel loops. Small stool burden. 3. Cirrhosis and portal hypertension. Trace ascites. 4. Minimally decreased prominence of the chronic partially occlusive thrombus in the main portal ve in, right portal vein, and superior mesenteric vein compared to June 2023. 5. Hepatic hypodense lesions, not adequately evaluated on this exam. Recommend further evaluation w ith hepatic protocol MRI or CT when appropriate. Electronically signed by: Sarah Gutiérrez MD 01/17/2024 01:03 AM CDT Due to temporary technical issues with the PACS/PENRITH reporting system, reports are being lelo d by the in-house radiologist without review as a courtesy to ensure prompt reporting the interpreting radiologist is fully responsible for the content of the report. Transcribed Date/Time: 01/17/2024 1:07 AM
[2024-01-17] MEDS: carvediloL 12.5 MG TAB PO ONE (02:04)
[2024-01-17] MEDS ORDERED: ONDANSETRON 4 MG/2 ML VIAL IV PRN (03:00)
[2024-01-17 04:30] VITALS: BMI 25.1
[2024-01-17 06:07] LABS: Absolute Lymphocytes (CBC) 0.8 K/uL (0.7-4.9); Absolute Neutrophil 6.6 K/uL (1.8-8.0); Basophils % 0.2 % (0-1.3); Eosinophils % 0.2 % (0-4.4); Hematocrit 41.7 % (39.6-49.0); MCH 30.7 pg (27.0-35.0); MCHC 33.5 g/dL (32.0-36.0); MCV 91.8 fL (80-100); Monocytes % 12.4 % (3.3-12.3); Neutrophils % 78.2 % (41.7-73.7); Platelets 65 thou/uL (152-406); RBC Red Blood Cell Count 4.54 M/uL (4.33-5.43); Red Cell Distribution Width 15.3 % (12.1-15.2)
[2024-01-17 06:19] LABS: Albumin/Globulin Ratio 0.7 (1.1-1.8); Anion Gap 7.9 mEq/L (5.0-15.0); Bilirubin Total 2.5 mg/dL (0.2-1.0); Globulin 4.2 g/dL (2.3-3.5); Magnesium 1.8 mg/dL (1.6-2.4); Phosphorus 3.7 mg/dL (2.5-4.9); Potassium 3.9 mEq/L (3.5-5.1); Protein, Total 7.2 g/dL (6.4-8.2)
[2024-01-17] MEDS: FUROSEMIDE 40 MG/4 ML VIAL IV SCH (08:48)
[2024-01-17] MEDS: PANTOPRAZOLE 40MG TABLET PO SCH (08:49)
[2024-01-17] MEDS: carvediloL 12.5 MG TAB PO SCH (08:49)
[2024-01-17] MEDS: TAMSULOSIN 0.4 MG SR CAP PO SCH (08:50)
[2024-01-17] MEDS ORDERED: HOME MED 1 EA UNK (Omeprazole [Omeprazole] 20 MG Tablet.Dr) PO SCH (09:00)
[2024-01-17] MEDS ORDERED: ENOXAPARIN 40 MG/0.4 ML SQ SCH (09:00)
--- NOTE | 2024-01-17 10:36 | RAD REPORT ---
EXAMINATION: Abdomen Exam Limited CLINICAL HISTORY: [facility] evaluate ascites volume COMPARISON: CT abdomen 07/14/2023. TECHNIQUE: Limited upper abdominal grayscale and color flow sonographic images. FINDINGS: Bile ducts: No intrahepatic or extrahepatic biliary dilatation. Gallbladder was surgically removed. Liver: Visualized portions of the liver demonstrate coarsened echotexture with capsular contour nodul arity. No focal lesions are appreciated.. Fluid: No ascites. Marked fluid distention of the stomach. IMPRESSION: No appreciable ascites. Marked fluid distention of the stomach. Coarsened hepatic echotexture, suggesting chronic liver disease or cirrhosis.
[2024-01-17 12:05] VITALS: BP 104/57; TEMP 99.3
--- NOTE | 2024-01-17 14:51 | P.DS ---
Admission Date: 01/16/24 Discharge Date: 01/17/24 Disposition: ROUTINE DISCHARGE Discharge Condition: GOOD Reason for Admission: Abdominal distention Brief History of Present Illness: 73-year-old gentleman with a history of liver cirrhosis, liver mass, portal vein thrombosis, BPH, history of bilateral inguinal hernia underwent inguinal hernia repair in day surgery. Patient noted to have abdominal distention and acute urinary retention in the recovery room. He also vomited a couple of times. According to nursing staff, patient was given a total of 1200 mL of fluid. Patient was also made to drink more fluids to get him to void. Patient is hospitalized for further evaluation and management of abdominal distention. Hospital Course: Pt is a 73yo gentleman with past medical history of liver cirrhosis, liver mass, portal vein thrombosis, BPH, and bilateral inguinal hernia who underwent inguinal hernia repair in day surgery on 01/16/24. Pt had abdominal distention and acute urinary retention in the recovery room. He also vomited a couple of times. The nurse in PACU reported that pt received 1200cc of Normal saline. Pt was admitted for abdominal distention. We gave iv zosyn, lasix and ordered CT abd which showed small ascites. Pt felt better the next morning and Gen surgeon cleared him for discharge. We gave doxy and cipro for 7 more days. Pt was in NAD prior to discharge. Vital Signs/Physical Exam: Temp Pulse Resp BP Pulse Ox 99.3 F 77 16 104/57 L 94 01/17/24 12:00 01/17/24 12:00 01/17/24 12:00 01/17/24 12:00 01/17/24 12:00 Laboratory Data at Discharge: WBC 8.40 thou/uL (4.3-10.9) 01/17/24 05:35 Hgb 14.0 g/dL (13.6-17.9) 01/17/24 05:35 Hct 41.7 % (39.6-49.0) 01/17/24 05:35 Plt Count 65 thou/uL (152-406) L 01/17/24 05:35 Sodium 132 mEq/L (136-145) L 01/17/24 05:35 Potassium 3.9 mEq/L (3.5-5.1) 01/17/24 05:35 BUN 13 mg/dL (7-18) 01/17/24 05:35 Creatinine 1.05 mg/dL (0.70-1.30) 01/17/24 05:35 Glucose 114 mg/dL (74-106) H 01/17/24 05:35 Phosphorus 3.7 mg/dL (2.5-4.9) 01/17/24 05:35 Magnesium 1.8 mg/dL (1.6-2.4) 01/17/24 05:35 Total Bilirubin 2.5 mg/dL (0.2-1.0) H 01/17/24 05:35 AST 17 U/L (15-37) 01/17/24 05:35 ALT 18 U/L (16-61) 01/17/24 05:35 Alkaline Phosphatase 122 U/L (45-117) H 01/17/24 05:35 Home Medications: Omeprazole 1 tab PO DAILY 08/11/14 Carvedilol [Coreg] 12.5 mg PO BID 07/14/23 Tamsulosin HCl [Flomax] 0.4 mg PO BID 07/14/23 Ciprofloxacin HCl [Cipro 500 MG Tablet] 500 mg PO BID 7 Days #14 tab 01/17/24 Doxycycline Hyclate 100 mg PO BID 7 Days #14 tab 01/17/24 New Medications: Ciprofloxacin HCl [Cipro 500 MG Tablet] 500 mg PO BID 7 Days #14 tab Doxycycline Hyclate 100 mg PO BID 7 Days #14 tab Diet: Regular Activity: No lifting more than 10 lbs Followup: Sonido Faria MD [ACTIVE - CAN ADMIT] - 1-2 Weeks Rosalia Pierre FNP [Primary Care Provider] - 1-2 Weeks
== END 2024-01-17 15:08 | disposition home or self-care (01) ==
LOC: OR 12:27 → 2ND 20:42
PROVIDERS: ADMIT Surgery; ATTEND Hospitalist
PROC: 0YUA0JZ Supplement Bilateral Inguinal Region with Synthetic Substitute, Open Approach (ICD-10-PCS; principal; 2024-01-16 14:30)
DX: K40.90 Unilateral inguinal hernia, without obstruction or gangrene, not specified as recurrent (principal); R14.0 Abdominal distension (gaseous); R18.8 Other ascites; R11.2 Nausea with vomiting, unspecified; R33.9 Retention of urine, unspecified; K74.60 Unspecified cirrhosis of liver; R16.0 Hepatomegaly, not elsewhere classified; I81 Portal vein thrombosis; N40.0 Benign prostatic hyperplasia without lower urinary tract symptoms; I85.00 Esophageal varices without bleeding
CPT/HCPCS: 36415; 74177; 76705; 80048; 80053; 83735; 84100; 85025; 88302; 93005; C1781; G0378; G0379; J0360; J0690; J1170; J1940; J2001; J2405; J2543; J2550; J2704; J2710; J3010; J7120; Q9967